=== PATIENT | female | born 1945 | race Caucasian/White ===

== ENCOUNTER → 2020-02-05 10:45 | Outpatient (BNVA) | payer MEDICARE, SELFPAY | PROVIDERS: Family Provider Family Medicine; PCP Family Medicine; Visit Provider Specialist | DX: G20 Parkinson's disease (principal) | CPT/HCPCS: 99214 ==

== ENCOUNTER 2020-07-01 06:00 | Outpatient (RCR) | payer MEDICARE, SELFPAY | END 2020-07-31 23:59 | disposition home or self-care (01) | LOC: SPT 06:00 | PROVIDERS: Family Provider Family Medicine; PCP Family Medicine; Referring Provider Family Medicine; Visit Provider Family Medicine | DX: R26.81 Unsteadiness on feet (principal) | CPT/HCPCS: 97110; 97162; 97530 ==

== ENCOUNTER 2020-08-01 06:00 | Outpatient (RCR) | payer MEDICARE, SELFPAY | END 2020-08-30 23:59 | disposition home or self-care (01) | LOC: SPT 06:00 | PROVIDERS: PCP Family Medicine; Referring Provider Family Medicine; Visit Provider Family Medicine | DX: R26.81 Unsteadiness on feet (principal) | CPT/HCPCS: 97530 ==

== ENCOUNTER → 2020-08-26 10:58 | Outpatient (BNVA) | payer MEDICARE, SELFPAY | PROVIDERS: PCP Family Medicine; Visit Provider Specialist | DX: G31.83 Neurocognitive disorder with Lewy bodies (principal); F02.80 Dementia in other diseases classified elsewhere, unspecified severity, without behavioral disturbance, psychotic disturbance, mood disturbance, and anxiety | CPT/HCPCS: 99214 ==

== ENCOUNTER → 2021-02-26 09:55 | Outpatient (BNVA) | payer MEDICARE, SELFPAY | PROVIDERS: PCP Family Medicine; Visit Provider Specialist | DX: G20 Parkinson's disease (principal); F02.80 Dementia in other diseases classified elsewhere, unspecified severity, without behavioral disturbance, psychotic disturbance, mood disturbance, and anxiety | CPT/HCPCS: 99213; 99214 ==

== ENCOUNTER 2021-06-21 12:56 | Inpatient (IN) | payer MEDICARE, SELFPAY ==
[2021-06-21 13:03] VITALS: BP 132/86; PULSE 95; RESP 18; TEMP 36.7; O2SAT 97; BMI 27.1
--- NOTE | 2021-06-21 13:41 | XRR_ITS ---
PROCEDURE INFORMATION: Exam: XR Left Shoulder Exam date and time: 06/21/2021 1:41 PM Age: 75 years old Clinical indication: Pain; Shoulder; Left; Additional info: Fall TECHNIQUE: Imaging protocol: XR Left shoulder. Views: 1 view. COMPARISON: CR Chest 1 [place] [id number] 12/27/2017 1:25 PM FINDINGS: Bones/joints: Single AP view of the left shoulder. No evidence of fracture or dislocation. Soft tissues: Normal. XR/XR shoulder LT 1V [id number] IMPRESSION: No acute findings.
--- NOTE | 2021-06-21 13:41 | XRR_ITS ---
PROCEDURE INFORMATION: Exam: XR Left Hip Exam date and time: 06/21/2021 1:41 PM Age: 75 years old Clinical indication: Injury or trauma; Fall; Blunt trauma (contusions or hematomas); Left; Hip TECHNIQUE: Imaging protocol: XR Left hip. Views: 2 or 3 views hip with pelvis when performed. COMPARISON: 1. CT abdomen pelvis w con* [id number] 05/16/2015 11:29 AM 2. CR (LOW EXM, ) 06/21/2021 2:05 PM FINDINGS: Bones/joints: Fracture through the left femoral neck, with mild cephalad migration of the shaft relative to the head. Soft tissues: Unremarkable. XR/XR hip LT 2-3V wo/w pel* [id number] IMPRESSION: Left femoral neck fracture.
--- NOTE | 2021-06-21 13:42 | XRR_ITS ---
PROCEDURE INFORMATION: Exam: XR Left Elbow Exam date and time: 06/21/2021 1:42 PM Age: 75 years old Clinical indication: Pain; Elbow; Left; Additional info: Fall TECHNIQUE: Imaging protocol: XR Left elbow. Views: 1 or 2 views. COMPARISON: CR (CHEST, ) 06/21/2021 1:56 PM FINDINGS: Bones/joints: No evidence of fracture or dislocation. Soft tissues: Soft tissue swelling of the upper arm laterally and posteriorly. XR/XR elbow LT 2V [id number] IMPRESSION: No evidence of fracture or dislocation.
--- NOTE | 2021-06-21 13:49 | ED_ITS ---
HPI - Fall General: Chief Complaint: Fall Stated Complaint: Left hip, left arm pain Time Seen by Provider: 06/21/21 13:25 Source: patient and family (Daughter and ) Mode of arrival: ambulatory Limitations: no limitations History of Present Illness: History isPatient was transported to the emergency department by family. By the daughter as well as a spouse of the patient. She has a history of p arkinsonism and does have some gait issues. Cording to the they were ambulating and ground-level last evening and she stumbled and fell and he also fell with her. She did not suffer syncope prior to her fall or loss of consciousness associated with her fall. The daughter went over to see them today and noted that the mother complained of pain in her left elbow as well as her left thigh region. The patient apparently has complained of pain with movement of the left leg and hip. MD complaint: fall Fall from: standing Fall witnessed: yes, by family Place fall occurred: home Loss of consciousness: None Context: tripped/slipped and history of frequent falls Location of injury - extremities: Left: elbow, forearm and thigh Severity: moderate Associated symptoms-after fall: Reports difficulty walking (Chronic); Denies abdominal pain, chest pain, headache(s) or neck pain Review of Systems Const: Denies: fever(s) or chills Eyes: Denies: change in vision or blurry vision Card: Denies: chest pain, palpitations or syncope Resp: Denies: dyspnea GI: Denies: abdominal pain, nausea or diarrhea : Denies: flank pain, difficulty voiding or dysuria Musc: Denies: neck pain Neuro: Reports: difficulty walking (Chronic) and frequent falls; Denies: headache(s) or seizure-like activity Giancarlo/Lymph: Reports: easy bruising [facility] ED PFSH: Medical History Lewy body Parkinson disease Family History Other CAD (coronary artery disease) Cancer Dementia Diabetes Parkinson disease Social History Smoking and tobacco status: never smoked Physical Exam Narrative: EXAM NARRATIVE: She is alert makes good eye contact. Her speech is somewhat inhibited due to low volume some stuttering. Const: COMMON NORMALS: no acute distress and alert GENERAL APPEARANCE: cooperative, comfortable and well kempt ORIENTATION/CONSCIOUSNESS: Yes oriented to person HENMT: COMMON NORMALS: normocephalic, atraumatic and Normal external nose present HEAD & SCALP: normocephalic and atraumatic; no contusion FACE & SINUS: normal facial exam and face symmetric NOSE: Normal external nose present MOUTH: Normal oral and palatal mucosa present Eye: COMMON NORMALS: Equal, round and reactive pupils present, EOMs intact bilaterally and conjunctivae normal CONJUNCTIVA: Yes conjunctivae normal PUPIL: Yes Equal, round and reactive pupils present Neck/C-Spine: COMMON NORMALS: full ROM (She has no midline tenderness. She is able to range her head and neck to t) and No carotid bruits CAROTIDS: Yes normal carotid upstroke Lymph: LYMPHATIC: no lymphadenopathy noted Chest: COMMONS NORMALS: normal inspection of the chest and normal palpation of entire chest wall Resp: COMMON NORMALS: normal respiratory effort and No retractions Cardio: COMMON NORMALS: regular rate, regular rhythm and No murmurs present (Cardio) RATE: regular rate RHYTHM: regular rhythm GI: COMMON NORMALS: Normal to inspection, nondistended, normoactive bowel sounds present, Soft to palpation and non-tender PALPATION: Yes Soft to palpation : COMMON NORMALS: Yes no CVA tenderness BLADDER/KIDNEY EXAM: Yes no CVA tenderness Back/Pelvis: COMMON NORMALS: no CVA tenderness, thoracic and lumbar spine normal to inspection, no thoracic nor lumbar tenderness and thoraco-lumbar ROM normal PELVIS: Yes no pain with anterior-posterior compression and Yes no pain with lateral compression Extremity: COMMON NORMALS: capillary refill normal NARRATIVE EXTREMITY EXAM: Her right upper and right lower extremities were examined and had normal range of motion with any tenderness deformity etc. Her left upper extremity shoulder range of motion was normal. Her elbow and wrist were normal range of motion w ithout any deformity. Her left lower extremity remarkable for decreased range of motion at the hip with tenderness down the lateral femur. Knee and ankle range of motion were normal without deformity. GENERAL: Yes normal exam except as noted LEFT UPPER EXTREMITY: Yes elbow joint (Ecchymosis mild swelling) LEFT LOWER EXTREMITY: Yes upper leg (Tenderness lateral mid thigh. Tenderness with attempt to range upper leg.) Neuro: SENSORIUM/ORIENTATION: Yes alert and Yes oriented to person MOTOR EXAM: no tremor noted Psych: COMMON NORMALS: mental status grossly normal APPEARANCE: Yes well kempt Skin: COMMON NORMALS: no rashes or lesions noted GENERAL SKIN EXAM: no rashes or lesions noted and ecchymosis (Left elbow left wrist.) Course ED course: I informed the patient and family of her hip fracture. No evidence at this time of other injuries. She will need orthopedic consultation admission for operative fixation. We will go ahead and begin preoperative screening laboratories etc. and consult the appropriate services. Patient and family voiced understanding of our discussion. Consultations: Consultation #1: I spoke with Dr. Camejo orthopedist motor vehicle salesperson. She will act as a application consultant and requests that we admit her to the hospitalist service. Time: 14:47 Consultation #2: I spoke with Dr. Amaro attending hospitalist who agreed except the patient. Time: 14:47 Vital Signs: Vital signs: Vital Signs Temperature 98.0 F 06/21/21 13:03 Pulse Rate 95 06/21/21 13:03 Respiratory Rate 18 06/21/21 13:03 Blood Pressure 132/86 06/21/21 13:03 Pulse Oximetry 97 06/21/21 13:03 MDM - Fall Medical Decision Making Patient has a closed fracture of the left hip that will require operative repair. Patient does not have any evidence of other injury at this time. We will plan on admission. Patient and family were informed. Lab Data Radiology Impressions Hip/Pelvis X-Ray 06/21/21 13:41 IMPRESSION: Left femoral neck fracture. Shoulder X-Ray 06/21/21 13:41 IMPRESSION: No acute findings. Elbow X-Ray 06/21/21 13:42 IMPRESSION: No evidence of fracture or dislocation. Femur X-Ray 06/21/21 13:52 IMPRESSION: Osteopenia. No evidence of fracture. Discharge Plan Discharge Patient Disposition: Admitted As Inpatient Clinical Impression: Closed fracture of left hip, Parkinson disease Condition: Stable Prescriptions: No Action (DME) Arsen Lift See Rx Instructions .Route .MEDSUPPLY Qty: 1 0RF Rx Instructions: As directed (DME) Depends Pull Ups See Rx Instructions .Route .MEDSUPPLY Qty: 1 0RF Rx Instructions: As directed (DME) Hospital bed See Rx Instructions .Route .MEDSUPPLY Qty: 1 0RF Rx Instructions: As directed donepezil 10 mg tablet 10 mg PO BEDTIME 0RF paroxetine HCl 20 mg tablet 20 mg PO BEDTIME 0RF meloxicam 15 mg Tablet 15 mg PO BEDTIME 0RF aspirin 81 mg Tablet,Chewable 81 mg PO BEDTIME 0RF clonazepam 0.5 mg tablet 0.5 mg PO BEDTIME 0RF carbidopa-levodopa 25-100 mg tablet,disintegrating 1 tab PO BEDTIME 0RF Referrals: Emile Castillo MD [Primary Care Provider] - Coding Level of Care Code ED [employer] for Chg Fwd Exam Comprehensive
--- NOTE | 2021-06-21 13:52 | XRR_ITS ---
PROCEDURE INFORMATION: Exam: XR Left Femur Exam date and time: 06/21/2021 1:52 PM Age: 75 years old Clinical indication: Pain; Lower leg; Left; Additional info: Fall, May substitute for knee TECHNIQUE: Imaging protocol: XR Left femur. Views: 2 views. COMPARISON: CR (PELVIS, ) 06/21/2021 2:02 PM FINDINGS: Bones/joints: Osteopenia limiting evaluation. No evidence of fracture. Note that the proximal femur is shielded on the lateral view. Soft tissues: Unremarkable. XR/XR femur LT min 2V* [id number] IMPRESSION: Osteopenia. No evidence of fracture.
--- NOTE | 2021-06-21 14:53 | XRR_ITS ---
PROCEDURE INFORMATION: Exam: XR Chest Exam date and time: 06/21/2021 2:53 PM Age: 75 years old Clinical indication: Pain; Other: Hip fracture TECHNIQUE: Imaging protocol: XR of the chest. Views: 1 view. COMPARISON: CR Chest 1 [place] [id number] 12/27/2017 1:25 PM FINDINGS: Lungs: Unremarkable. No consolidation. Pleural spaces: Unremarkable. No pleural effusion. No pneumothorax. Heart/Mediastinum: Unremarkable. No cardiomegaly. Bones/joints: Unremarkable. XR/XR chest 1V [id number] IMPRESSION: No acute findings.
--- NOTE | 2021-06-21 14:53 | ECG_ITS ---
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 Measurements Intervals [place] Rate: 92 P: 66 [place]: 142 QRS: 78 QRSD: 90 T: 64 QT: 356 QTc: 441 Interpretive Statements SINUS RHYTHM MINIMAL ST DEPRESSION [0.025+ mV ST DEPRESSION] Compared to ECG 12/27/2017 12:51:28 ST (T wave) deviation now present Sinus tachycardia no longer present Atrial abnormality no longer present Electronically Signed On 06-23-2021 12:15:54 MEDICAL STAFF SERVICES COORDINATOR by Aramis Ritter M.D. [id number]
--- NOTE | 2021-06-21 15:27 | W.ED.FALL ---
HPI - Fall General: Chief Complaint: Fall Stated Complaint: Left hip, left arm pain Time Seen by Provider: 06/21/21 13:25 Source: patient and family (Daughter and ) Mode of arrival: ambulatory History of Present Illness: Place fall occurred: home Context: tripped/slipped and history of frequent falls PFS ED PFSH: Medical History Lewy body Parkinson disease Family History Other CAD (coronary artery disease) Cancer Dementia Diabetes Parkinson disease Social History Smoking and tobacco status: never smoked Course Vital Signs: Vital signs: Vital Signs Temperature 98.0 F 06/21/21 13:03 Pulse Rate 95 06/21/21 13:03 Respiratory Rate 18 06/21/21 13:03 Blood Pressure 132/86 06/21/21 13:03 Pulse Oximetry 97 06/21/21 13:03 MDM - Fall Lab Data Radiology Impressions Hip/Pelvis X-Ray 06/21/21 13:41 IMPRESSION: Left femoral neck fracture. Shoulder X-Ray 06/21/21 13:41 IMPRESSION: No acute findings. Elbow X-Ray 06/21/21 13:42 IMPRESSION: No evidence of fracture or dislocation. Femur X-Ray 06/21/21 13:52 IMPRESSION: Osteopenia. No evidence of fracture. 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
--- NOTE | 2021-06-21 15:29 | P.CONIM_ITS ---
Providers/Reason For Consult Consulting Physician/Specialty*: Floridalma Cardoso MD Reason for Consult*: Left subcapital hip fracture Requesting Physician: Dr. Ricardo Berg Attending Physician: Donnie Amaro MD Primary Care Provider: Emile Castillo MD History of Present Illness History of Present Illness Maine Jimenez is a 75 year old female who was in her usual state of health when she had a mechanical fall at home. This was a fall from ground-level. The patient reportedly stumbled, and she and her ended up falling together to the floor. She has medical issues consistent with parkinsonism as well as Lewy body dementia. The patient and her denied that she had any other reason for her fall. On admission to the emergency department, she had left lower extremity pain and was unable to weight-bear. After evaluation, the patient was found to have a subcapital hip fracture. She was admitted for definitive care. Review of Systems Const: Denies: fever(s) or chills Eyes: Denies: change in vision or blurry vision Card: Denies: chest pain, palpitations or syncope Resp: Denies: dyspnea GI: Denies: abdominal pain, nausea or diarrhea : Denies: flank pain, difficulty voiding or dysuria Musc: Denies: neck pain Neuro: Reports: difficulty walking (Chronic), frequent falls and other (Dementia); Denies: headache(s) or seizure-like activity Giancarlo/Lymph: Reports: easy bruising Medications/Allergies Home Medications Medication Instructions Recorded Confirmed Last Taken Type donepezil 10 mg tablet 10 mg PO BEDTIME 02/05/20 06/21/21 06/20/21 History paroxetine HCl 20 mg tablet 20 mg PO BEDTIME 02/05/20 06/21/21 06/20/21 History Depends Pull Ups #1 ea 08/26/20 06/21/21 Unknown Rx Hospital bed #1 ea 08/26/20 06/21/21 Unknown Rx Arsen Lift #1 ea 08/26/20 06/21/21 Unknown Rx aspirin 81 mg chewable tablet 81 mg PO BEDTIME 06/21/21 06/21/21 06/20/21 History carbidopa 25 mg-levodopa 100 mg 1 tab PO BEDTIME 06/21/21 06/21/21 06/20/21 History disintegrating tablet clonazepam 0.5 mg tablet 0.5 mg PO BEDTIME 06/21/21 06/21/21 06/20/21 History meloxicam 15 mg tablet 15 mg PO BEDTIME 06/21/21 06/21/21 06/20/21 History Allergies Allergy/AdvReac Type Severity Reaction Status Date / Time No Known Allergies Allergy Unverified 06/21/21 14:17 PFSH Acute PFSH: Medical History Lewy body Parkinson disease Family History Other CAD (coronary artery disease) Cancer Dementia Diabetes Parkinson disease Social History Smoking and tobacco status: never smoked Dietary Habits: Current diet type/program: regular Vitals/I&O/Wt Last Vital Signs Temp 98.0 F 06/21/21 13:03 Pulse 95 06/21/21 13:03 Resp 18 06/21/21 13:03 BP 132/86 06/21/21 13:03 Pulse Ox 97 06/21/21 13:03 Weight last 48 hrs Weight 163 lb Physical Exam Const: COMMON NORMALS: no acute distress, average body habitus and alert GENERAL APPEARANCE: cooperative and comfortable ORIENTATION/CONSCIOUSNESS: Yes awake HENMT: COMMON NORMALS: normocephalic and atraumatic HEAD & SCALP: normocephalic and atraumatic Eye: GENERAL EYE: appearance normal, both eyes and all related structures Chest: COMMONS NORMALS: normal inspection of the chest Resp: COMMON NORMALS: normal respiratory effort EFFORT & INSPECTION: Yes symmetric chest movement Extremity: LEFT UPPER EXTREMITY: Yes elbow joint (Significant ecchymosis about the elbow secondary to fall) LEFT LOWER EXTREMITY: Yes hip joint (Tender to any range of motion) Left hip: Yes neurovascular exam (Able to move toes and foot) Neuro: SENSORIUM/ORIENTATION: Yes alert and Yes other (Dementia) Psych: APPEARANCE: Yes grossly normal ATTITUDE: Yes calm ATTENTION/CONCENTRATION: Yes attention grossly intact Skin: COMMON NORMALS: no rashes or lesions noted GENERAL SKIN EXAM: no rashes or lesions noted Data : 06/22/21 03:37 06/22/21 03:37 Xray Ortho: I personally reviewed and interpreted this imaging study as follows: My impression: Imaging including an AP pelvis as well as a lateral of the patient's left hip is obtained. This is personally reviewed and interpreted by me. Imaging studies demonstrate a displaced subcapital hip fracture with superior migration of the distal the fragment. The femoral head is located. The remaining orthopedic imaging studies of the shoulder elbowAnd femur are without evidence of fracture. A&P Assessment and plan (1) Subcapital fracture of left hip: The 75-year-old woman was admitted through the emergency department with a diagnosis of left capital hip fracture. She has comorbidities including Parkinson's disease, and she was admitted to the medical service. I have personally reviewed the imaging studies, and there is a displaced subcapital hip fracture. There is superior migration of the femoral shaft on the femoral head which is not displaced from the acetabulum. Plans are made for a Left hip hemiarthroplasty for 8AM tomorrow. 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
[2021-06-21 15:43] LABS: Basophils % 0.3 %; Eosinophils # 0.1 10^3/uL (0.0-0.8); Eosinophils % 0.7 %; Hematocrit 40.8 % (37.0-47.0); Hemoglobin 13.5 g/dL (11.5-15.3); Lymphocytes # 0.9 10^3/uL (0.8-4.8); Lymphocytes % 9.9 %; Mean Corpuscular HGB Conc 33.1 g/dL (30.0-36.0); Mean Corpuscular Hemoglobin 28.4 pg (28.0-34.0); Mean Corpuscular Volume 85.7 fl (81-99); Mean Platelet Volume 9.5 fL (7.4-10.4); Monocytes # 0.7 10^3/uL (0.2-0.9); Neutrophils # 7.26 10^3/uL (1.8-7.7); Neutrophils % 80.7 %; Nucleated Red Blood Cells % 0 %; Platelet Count 176 10^3/cmm (130-400); Red Blood Count 4.76 10^6/uL (4.1-5.3); Red Cell Distribution Width 12.7 % (12.1-15.1)
--- NOTE | 2021-06-21 15:56 | P.HP_ITS ---
Providers/Chief Complaint Admitting Physician: Donnie Amaro MD Primary Care Provider: Emile Castillo MD Chief Complaint: Left hip, left arm pain History of Present Illness Maine Jimenez is a 75 year old female with past medical history of parkinsonism, LBD , was brought in with chief complaint of lt lower extremity pain, and difficulty to bear weight on it, after having mechanical fall at home she was ambulating at the ground-level and she stumbled and then experienced a fall, she denies any loss of consciousness, denies any lightheadedness, chest pain , palpitation, sob, prior to the fall. Upon arrival in the ER she was worked up for above-mentioned complaint. Pertinent imaging studies: XR hip LT: Left femoral neck fracture. XR shoulder LT: No acute findings. XR elbow LT:No acute findings XR femur LT: Osteopenia. No evidence of fracture. XR chest: No acute findings EKG: Sinus rhythm. Pertinent labs: WBC 9 H&H 13.5/40.8 , PLT : 176 , serum sodium 139 serum potassium 3.8, BUN and serum creatinine 15/ 0.6 , Review of Systems General: Reports: 10 or more systems reviewed and unremarkable except in HPI and below Const: Denies: fever(s), chills, body aches, change in appetite or diaphoresis Card: Denies: palpitations, edema, swelling of feet/ankles, dyspnea on exertion, orthopnea or leg pain with exertion Resp: Denies: dyspnea, productive cough, wheezing or pain on inspiration GI: Denies: abdominal pain, nausea, vomiting, diarrhea or constipation : Denies: flank pain Musc: Denies: back pain Neuro: Reports: confusion; Denies: headache(s) Medications/Allergies Home Medications Medication Instructions Recorded Confirmed Last Taken Type donepezil 10 mg tablet 10 mg PO BEDTIME 02/05/20 06/21/21 06/20/21 History paroxetine HCl 20 mg tablet 20 mg PO BEDTIME 02/05/20 06/21/21 06/20/21 History Depends Pull Ups #1 ea 08/26/20 06/21/21 Unknown Rx Hospital bed #1 ea 08/26/20 06/21/21 Unknown Rx Arsen Lift #1 ea 08/26/20 06/21/21 Unknown Rx aspirin 81 mg chewable tablet 81 mg PO BEDTIME 02/06/21/21 06/20/21 History carbidopa 25 mg-levodopa 100 mg 1 tab PO BEDTIME 06/21/21 06/21/21 06/20/21 History disintegrating tablet clonazepam 0.5 mg tablet 0.5 mg PO BEDTIME 06/21/21 06/21/21 06/20/21 History meloxicam 15 mg tablet 15 mg PO BEDTIME 06/21/21 06/21/21 06/20/21 History Allergies Allergy/AdvReac Type Severity Reaction Status Date / Time No Known Allergies Allergy Unverified 06/21/21 14:17 PFSH Acute PFSH: Medical History Lewy body Parkinson disease Family History Other CAD (coronary artery disease) Cancer Dementia Diabetes Parkinson disease Social History Smoking and tobacco status: never smoked Vitals/I&O/Wt Last Vital Signs Temp 98.0 F 06/21/21 13:03 Pulse 95 06/21/21 13:03 Resp 18 06/21/21 13:03 BP 132/86 06/21/21 13:03 Pulse Ox 97 06/21/21 13:03 Weight last 48 hrs Weight 73.936 kg Physical Exam Const: COMMON NORMALS: patient oriented x3 HENMT: COMMON NORMALS: normocephalic and atraumatic HEAD & SCALP: normocephalic and atraumatic Eye: COMMON NORMALS: no scleral icterus GENERAL EYE: appearance normal, both eyes and all related structures Chest: CHEST: Yes Symmetrical chest wall rise Resp: COMMON NORMALS: normal respiratory effort, No retractions, No use of accessory muscles and clear to auscultation bilaterally EFFORT & INSPECTION: Yes symmetric chest movement AUSCULTATION: clear to auscultation bilaterally Cardio: COMMON NORMALS: regular rate, regular rhythm, S1 normal heart sound present, S2 normal heart sound present, No gallops present (Cardio), No murmurs present (Cardio), No rub (Cardio) and Peripheral pulses 2+ throughout RATE: regular rate RHYTHM: regular rhythm HEART SOUNDS: S1 normal heart sound present and S2 normal heart sound present PERIPHERAL PULSES: Peripheral pulses 2+ throughout GI: COMMON NORMALS: Normal to inspection, nondistended, normoactive bowel s ounds present, Soft to palpation, non-tender, No hepatosplenomegaly present and no masses AUSCULTATION: Yes normoactive bowel sounds PALPATION: Yes Soft to palpation and Yes No hepatosplenomegaly present RECTAL EXAM: deferred Extremity: COMMON NORMALS: no clubbing, cyanosis or edema and no pedal edema Neuro: COMMON NORMALS: patient oriented x3 Data : 06/21/21 15:34 06/21/21 15:34 A&P Assessment and plan (1) Subcapital fracture of left hip: Status: Acute (2) Closed fracture of left hip: Status: Acute (3) Parkinson disease: Status: Acute (4) Lewy body dementia: Status: Acute Plan Assessment: Left femoral neck fracture: Parkinsonism Lewy body dementia Plan : Orthopedic surgery has been consulted in the ER, for intervention. Pain control N.p.o. after midnight Continue Sinemet Continue Aricept Continue aspirin 81 mg p.o. 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
--- NOTE | 2021-06-21 16:02 | ANES.PREANE2 ---
Pre-Anesthetic Assessment Height/Weight: Height 1.65 m Weight 73.936 kg Temp Pulse Resp BP Pulse Ox 98.0 F 95 18 132/86 97 06/21/21 13:03 06/21/21 13:03 06/21/21 13:03 06/21/21 13:03 06/21/21 13:03 Preop Diagnosis: Left subcapital hip fract Operation Date: 06/22/21 08:45 Proposed Procedures p Hemiarthroplasty Hip Bipolar(Left) - Floridalma Cardoso MD Familial anesthetic complications: Hx from and daughter Was Beta Carolyn taken within 24 hours: N/A Was Clonidine taken within 24 hours: N/A Social No alcohol and No tobacco Exam clear to auscultation bilaterally and regular rate & rhythm AMS today. Does follow some commands Airway Submandibular: within normal limits Cervical ROM: Other (Did not cooperate with exam to assess) Mallampati: Class II Dentition: partials History/ROS No significant history except as noted Pulmonary None reported CV/HEM None reported None reported Hepatic None reported GI None reported Metabolic None reported Musc/skel Acute fx left hip Neuropsych Lewy Body Dementia w/ periods of halluciniation Parkinson on carbidopa-levodopa Anesthetic Plan ASA status: 3 (75 year old female with acute hip fracture Parkison and lewy body dementia with progressive worsening of memory and mental state) Anesthesia: Anesthesia Evaluation, General and Regional (specify below) (spinal) Other: We discussed risk and benefits of general vs spinal anesthesia including DVT risk, infection, paralysis/catastrophic nerve injury, back bruising/pain, PDPH, conversion to general in case of spinal, PONV, sore throat (sometimes severe), corneal abrasion, positioning and peripheral nerve injuries, life threatening allergic reaction, post operative ICU admission requiring prolonged intubation, stroke, heart attack, , and rare incidences of recall. and daughterb both agree and both consent to either general or spinal. Plan spinal anesthesia. Risk of > 500 ml blood loss (7ml/kg in children): No Medications/Allergies Home Medications Medication Instructions Recorded Confirmed Last Taken Type donepezil 10 mg tablet 10 mg PO BEDTIME 02/05/20 06/21/21 06/20/21 History paroxetine HCl 20 mg tablet 20 mg PO BEDTIME 02/05/20 06/21/21 06/20/21 History Depends Pull Ups #1 ea 08/26/20 06/21/21 Unknown Rx Hospital bed #1 ea 08/26/20 06/21/21 Unknown Rx Arsen Lift #1 ea 08/26/20 06/21/21 Unknown Rx aspirin 81 mg chewable tablet 81 mg PO BEDTIME 06/21/21 06/21/21 06/20/21 History carbidopa 25 mg-levodopa 100 mg 1 tab PO BEDTIME 06/21/21 06/21/21 06/20/21 History disintegrating tablet clonazepam 0.5 mg tablet 0.5 mg PO BEDTIME 06/21/21 06/21/21 06/20/21 History meloxicam 15 mg tablet 15 mg PO BEDTIME 06/21/21 06/21/21 06/20/21 History Allergies Allergy/AdvReac Type Severity Reaction Status Date / Time No Known Allergies Allergy Unverified 06/21/21 14:17 [facility] Anesthesia Medical History Lewy body Parkinson disease Family History Other CAD (coronary artery disease) Cancer Dementia Diabetes Parkinson disease Social History Smoking and tobacco status: never smoked Data Anesthesia : 06/21/21 15:34 06/21/21 15:34 Short CBC 06/21/21 Range/Units 15:34 WBC 9.0 (4.0-10.0) 10^3/uL Hgb 13.5 (11.5-15.3) g/dL Hct 40.8 (37.0-47.0) % MCV 85.7 (81-99) fl Plt Count 176 (130-400) 10^3/cmm Neut % (Auto) 80.7 % Neut # (Auto) 7.26 (1.8-7.7) 10^3/uL Cardiac Studies: No Data to Display
[2021-06-21 16:06] VITALS: BP 151/76; PULSE 87; RESP 13; O2SAT 96
[2021-06-21 16:13] LABS: Alanine Aminotransferase 16 U/L (0-33); Albumin Level 4.3 g/dL (3.5-5.2); Alkaline Phosphatase 87 IU/L (35-105); Anion Gap 14.8 (5-19); Aspartate Amino Transferase 18 U/L (0-32); Blood Urea Nitrogen 15 mg/dL (8-23); Calcium 9.5 mg/dL (8.5-10.5); Carbon Dioxide 26 mmol/L (22-29); Chloride 102 mmol/L (98-107); Globulin 2.8 g/dL (1.3-4.6); Glucose 102 mg/dL (65-115); Osmolality Calculated 289 mOsm/kg (285-295); Potassium 3.8 mmol/L (3.5-5.1); Sodium 139 mmol/L (136-145); Total Bilirubin 1.2 mg/dL (0.15-1.2); Total Protein 7.1 g/dL (6.6-8.7)
[2021-06-21] MEDS: enoxaparin 40 mg/0.4 mL Syringe SUBCUT (16:24)
[2021-06-21 17:44] VITALS: BMI 27.1
[2021-06-21 17:51] LABS: Adenovirus Not Detected (NOT DETECT); Chlamydia Pneumoniae Not Detected (NOT DETECT); Coronavirus 229E,HKU1,NL63,OC4 Not Detected (NOT DETECT); Human Metapneumovirus Not Detected (NOT DETECT); Human Rhinovirus/Enterovirus Not Detected (NOT DETECT); Influenza A Not Detected (NOT DETECT); Influenza A H1 Not Detected (NOT DETECT); Influenza A H1-2009 Not Detected (NOT DETECT); Influenza A H3 Not Detected (NOT DETECT); Influenza B Not Detected (NOT DETECT); Mycoplasma Pneumoniae Not Detected (NOT DETECT); Parainfluenza Virus Type 1 Not Detected (NOT DETECT); Parainfluenza Virus Type 2 Not Detected (NOT DETECT); Parainfluenza Virus Type 3 Not Detected (NOT DETECT); Parainfluenza Virus Type 4 Not Detected (NOT DETECT); Respiratory Syncytial Virus A Not Detected (NOT DETECT); Respiratory Syncytial Virus B Not Detected (NOT DETECT); SARS-COV-2 Not Detected (NOT DETECT)
[2021-06-21 17:52] VITALS: BP 151/76; PULSE 87; RESP 13; O2SAT 96
[2021-06-21 18:10] LABS: Add Urine Microscopic? YES; Bilirubin Urine Neg (Negative); Blood Urine Neg (Negative); Glucose Urine UA Norm (Normal); Ketones Urine Negative (Negative); Leukocyte Esterase Urine Negative (Negative); Nitrate Urine Positive (Negative); Protein Urine Neg (Negative); Specific Gravity, Urine 1.015 (1.005-1.030); Urine Appearance Hazy (CLEAR); Urine Color Yellow (Yellow); Urobilinogen Urine Norm (Negative); pH Urine 5 (5-7)
[2021-06-21 18:12] LABS: Add Urine Culture? Yes; Bacteria Urine 4+ /hpf; Mucus Urine 1+ /hpf; Squamous Epithelial Cell Urine RARE /hpf (0-5)
[2021-06-21 20:00] VITALS: BP 127/83; PULSE 90; RESP 16; TEMP 38.1; O2SAT 97
[2021-06-21] MEDS: CLONazepam 0.5 mg Tablet PO (20:12)
[2021-06-21] MEDS: donepezil 5 MG Tablet 10 MG PO (20:12)
[2021-06-21] MEDS: aspirin 81 mg Chew Tablet PO (20:12)
[2021-06-21] MEDS: carbidopa-levodopa 25-100mg Tablet 1 EACH PO (20:12)
[2021-06-21] MEDS: PARoxetine 20 mg Tablet PO (20:13)
[2021-06-22] VITALS (17 sets, daily range): BP systolic 90–143; BP diastolic 55–78; PULSE 64–89; RESP 11–18; TEMP 36.1–37.4; O2SAT 93–97
[2021-06-22 04:14] LABS: Basophils % 0.4 %; Eosinophils # 0.1 10^3/uL (0.0-0.8); Eosinophils % 1.6 %; Hematocrit 35.1 % (37.0-47.0); Hemoglobin 11.6 g/dL (11.5-15.3); Lymphocytes # 0.9 10^3/uL (0.8-4.8); Lymphocytes % 11.9 %; Mean Corpuscular Hemoglobin 28.6 pg (28.0-34.0); Mean Corpuscular Volume 86.7 fl (81-99); Mean Platelet Volume 9.9 fL (7.4-10.4); Monocytes # 0.8 10^3/uL (0.2-0.9); Monocytes % 9.7 %; Neutrophils # 6.01 10^3/uL (1.8-7.7); Nucleated Red Blood Cells % 0 %; Platelet Count 164 10^3/cmm (130-400); Red Blood Count 4.05 10^6/uL (4.1-5.3); White Blood Count 7.9 10^3/uL (4.0-10.0)
[2021-06-22 04:34] LABS: Anion Gap 12.5 (5-19); Blood Urea Nitrogen 17 mg/dL (8-23); Calcium 8.8 mg/dL (8.5-10.5); Carbon Dioxide 26 mmol/L (22-29); Chloride 107 mmol/L (98-107); Glucose 111 mg/dL (65-115); Osmolality Calculated 296 mOsm/kg (285-295); Potassium 3.5 mmol/L (3.5-5.1); Sodium 142 mmol/L (136-145)
[2021-06-22] MEDS: acetaminophen 325 mg Tablet 650 MG PO (06:47)
--- NOTE | 2021-06-22 07:23 | PC.NURSE ---
Patient to surgery at this time.
[2021-06-22] MEDS: CELEcoxib 200 mg Capsule 400 MG PO (07:36)
[2021-06-22] MEDS: sodium chloride 0.9% 1,000 ML 30 ML IV (07:37)
[2021-06-22] MEDS: acetaminophen 1,000 MG/100 ML PIGGYBACK 400 MG IV ×2 (07:44→16:27)
[2021-06-22] MEDS: vancomycin 1,000 MG SDV 1000 MG XX (08:55)
[2021-06-22] MEDS: ceFAZolin 1,000 mg SDV 1000 MG IRRIGATION (08:56)
--- NOTE | 2021-06-22 09:11 | PC.NURSE ---
Report received from Antonia CARLSON.
--- NOTE | 2021-06-22 09:54 | XRR_ITS ---
PROCEDURE INFORMATION: Exam: XR Pelvis Exam date and time: 06/22/2021 9:54 AM Age: 75 years old Clinical indication: Hip pain; Left hip; Prior surgery; Surgery date: Post-operative (0-2 days); Additional info: S/P left hip hemiarthroplasty TECHNIQUE: Imaging protocol: XR pelvis. Views: AP single view. COMPARISON: CR (PELVIS, ) 06/21/2021 2:02 PM FINDINGS: Bones/joints: Interval left proximal femoral bipolar hip prosthesis placement, in good position and alignment. Soft tissues: Lateral operative site mild soft tissue emphysema. XR/XR pelvis 1-2V* [id number] IMPRESSION: 1. Postoperative changes as above. 2. No acute bony or hardware abnormality identified.
--- NOTE | 2021-06-22 09:58 | PM.OP ---
Operative Report Date of procedure: June 22, 2021 Pre-op diagnosis: Left subcapital hip fracture Post-op diagnosis: Left subcapital hip fracture with adductor contracture Procedure done: Left Bipolar Hip Arthroplasty Adductor tenotomy left hip Implants: The [place] hip system with the following implants: The Accolade II 127 degree neck angle size 5 femoral stem with a V40 LFIT femoral head size 28 mm x +4 mm and a universal head component bipolar size 46 mm outer diameter by 28 mm inner diameter Specimens removed/disposition: Femoral head, disposed of Pathology: none sent Surgeon: Floridalma Cardoso Tutor Coordinator: [facility] operating room technicians Anesthesia: MAC (With spinal, ASA 3) Estimated blood loss (mL): 200 IV fluids (mL): 1,000 Urine output (mL): 100 Complications: None Findings: Displaced left subcapital hip fracture. Adductor contracture Condition: stable Disposition: PACU (Then return to floor for postoperative rehabilitation, medical management, and pain management.) Brief History: This is a 75-year-old woman who unfortunately has Parkinson's and Lewy body dementia. She lost her balance and fell in her home. She states that it was a mechanical fall, and both she and her fell onto the floor together. She presented to the emergency department with inability to weight-bear on the left lower extremity. X-rays demonstrated a subcapital left hip fracture. She was admitted for definitive care. Procedure: The patient was brought to the operating theater, and after undergoing adequate spinal anesthesia, with MAC, ASA 3, she was transferred to the operating room table. The patient was placed in the full lateral position and held in place with the pegboard. Patient's leftlower extremity was draped free and was subsequently prepped and further draped free. A surgical pause was performed prior to commencement of the surgical procedure. During the surgical pause, we confirmed the site and side of surgery as well as availability of equipment. Additionally, we confirmed preoperative surgical markings. X-rays are also reviewed during this time.? Preoperatively, the patient was given Ancef 2 g as well as 1 g of TXA. Following the surgical pause, an incision was made centering over the greater trochanter continuing proximally and distally as necessary to allow access to the hip joint. Dissection continued through skin and soft tissue using scalpel. Hemostasis was obtained using electrocautery. Tensor fascia shazia was identified and incised longitudinally. Sciatic nerve was identified and protected throughout the surgical procedure. A Charnley U retractor was placed with care being taken to protect the sciatic nerve during placement. The hip was internally rotated. Piriformis muscle was then identified, tagged, and subsequently incised from the posterior aspect of the hip joint. The remaining short external rotators were also incised. These were then elevated off the capsule and the capsule was entered in a T-type fashion. Each side of the capsule was then tagged. The proximal femur was brought into an appropriate position of the femoral neck osteotomy was accomplished. This was in appropriate position for placement of the prosthetic component. Femoral head was removed from the acetabulum utilizing a corkscrew. It was subsequently measured. The appropriate size trial was chosen. This was a size 46 mm, and this was based upon measurement of the removed femoral head.?46 mm outer diameter gave us the best stability.? Therefore, this was the chosen size for implantation.? The femoral activities director scouting was then placed and attention was directed to the proximal femur.? Initially, the proximal femur was addressed with a box chisel, and this was followed by a canal finder and subsequently broaches. The hip was broached to a size 5 which was noted to fit nicely and have good fit and fill. Therefore this was to be the chosen component. Trial reduction was then accomplished with a 46 mm by 28 mm universal bipolar head component, a +0 mm by 28 mm femoral head. The hip was not felt to be stable enough under this construct, particularly, with the patient's diagnosis of parkinsonism. Therefore, we increased to a +4 mm x 28 mm femoral head. With this, the above-noted stabilities were accomplished and leg lengths were felt to be restored. This was felt to be appropriate, and therefore, trial components were removed and the hip was irrigated. Acetabulum was evaluated for any loose bodies or other soft tissues requiring resection. We then prepared for implantation. The size no Accolade II 127 degree neck angle hip stem was then impacted into position.? On the back table, we assembled the 46 mm universal bipolar head component with a +4 mm offset by 28 mm femoral head.? Care was taken to ensure that this was appropriately assembled.? This was placed onto the trunnion of the femoral component. It was impacted into position and pulled upon to assure that there was no dissociation. Once again the hip was irrigated and suctioned dry and was reduced. We then irrigated the hip further with 20 mL of Betadine mixed into 500 mL of normal saline. This was allowed to remain in the wound for approximately 3 minutes. It was then suctioned dry and irrigated with normal saline. This was suctioned dry again and closure was accomplished with 0 Vicryl in the capsular tissues followed by reattachment of the piriformis with 0 Vicryl. Additionally, the tensor was closed with 0 Vicryl in an interrupted fashion. Subcutaneous tissues were closed with 2-0 Monocryl. Skin was closed with subcuticular 3-0. This was followed by Donna Santos. A sterile dressing was placed consisting of Opsite, and the patient was placed in an abduction pillow. The patient was returned the Recovery Room in satisfactory condition. There were no complications. The patient will be discharged to the floor for postoperative rehabilitation and pain management. Related Problem List Diagnoses (1) Subcapital fracture of left hip: (2) Parkinson disease: (3) Lewy body dementia:
--- NOTE | 2021-06-22 10:22 | ANE.PACU2 ---
Inpatient post-anesthesia follow up: Vital signs: Temperature 97.4 F Pulse Rate 83 Respiratory Rate 18 Blood Pressure 143/78 Pulse Oximetry 94 Oxygen Delivery Me thod Room Air Oxygen Flow Rate Fraction of Inspir ed Oxygen
--- NOTE | 2021-06-22 10:56 | PC.OT ---
SURGERY THIS DATE, WILL PLAN TO EVALUATE TOMORROW WHEN MORE APPROPRIATE TO DETERMINE ADL STATUS.
--- NOTE | 2021-06-22 11:04 | PC.NURSE ---
Patient returned to room at this time. Daughter and at bedside. Patient is awake but sleepy. Patient denies any pain at this time.
[2021-06-22] MEDS: chlorhexidine gluconate 0.12% Btl 473 mL 30 ML MUCOUS MEM ×3 (12:41→21:19)
[2021-06-22] MEDS: mupirocin oint 22 gm 1 APPLIC NASAL ×2 (12:45→21:20)
--- NOTE | 2021-06-22 12:55 | PM.PN ---
Subjective Subjective: No acute events overnight, patient was seen after the procedure,tolerated the intervention well was complaining of discomfort due to keenan catheter. Mild lt leg pain. Had one episode of choking event while trying to eat noodles. Medications: Medication Review Details: Generic Name Dose Route Start Last Admin Trade Name Tara PRN Reason Stop Dose Admin Aspirin 81 mg 06/21/21 21:00 06/21/21 20:12 Aspirin 81 Mg Ch ew Tablet PO 81 mg BEDTIME NAZARIO Administration Carbidopa/Levodopa 1 each 06/21/21 21:00 06/21/21 20:12 Carbidopa-Levodo pa 25-100mg Tablet PO 1 each BEDTIME NAZARIO Administration Chlorhexidine Gluc raegan 30 ml 06/22/21 10:50 06/22/21 12:41 Chlorhexidine Gl uconate 0.12% Btl 473 Ml MUCOUS MEM 30 ml QID NAZARIO Administration Clonazepam 0.5 mg 06/21/21 21:00 06/21/21 20:12 Clonazepam 0.5 M g Tablet PO 0.5 mg BEDTIME NAZARIO Administration Donepezil HCl 10 mg 06/21/21 21:00 06/21/21 20:12 Donepezil 5 Mg T ablet PO 10 mg BEDTIME NAZARIO Administration Enoxaparin Sodium 40 mg 06/21/21 16:00 06/21/21 16:24 Enoxaparin 40 Mg /0.4 Ml Syringe SUBCUT 40 mg Q24H NAAZRIO Administration Mupirocin 1 applic 06/22/21 10:50 06/22/21 12:45 Mupirocin Oint 2 2 Gm NASAL 06/27/21 10:49 1 applic BID NAZARIO Administration Paroxetine HCl 20 mg 06/21/21 21:00 06/21/21 20:13 Paroxetine 20 Mg Tablet PO 20 mg BEDTIME NAZARIO Administration Vitals/I&O/Wt Last Vital Signs Temp 97.3 F L 06/22/21 11:50 Pulse 65 06/22/21 11:50 Resp 18 06/22/21 11:50 BP 128/76 06/22/21 11:50 Pulse Ox 95 06/22/21 11:50 06/21/21 06/22/21 06/22/21 22:59 06:59 14:59 Intake Total 120 / 120 270 / 270 Output Total 200 / 200 400 / 400 Balance 120 / 120 -200 / -80 -130 / -130 Weight last 48 hrs Weight 73.936 kg Weight 73.936 kg Physical Exam Const: COMMON NORMALS: patient oriented x3 HENMT: COMMON NORMALS: normocephalic and atraumatic HEAD & SCALP: normocephalic and atraumatic Eye: COMMON NORMALS: no scleral icterus GENERAL EYE: appearance normal, both eyes and all related structures Chest: CHEST: Yes Symmetrical chest wall rise Resp: COMMON NORMALS: normal respiratory effort, No retractions, No use of accessory muscles and clear to auscultation bilaterally EFFORT & INSPECTION: Yes symmetric chest movement AUSCULTATION: clear to auscultation bilaterally Cardio: COMMON NORMALS: regular rate, regular rhythm, S1 normal heart sound present, S2 normal heart sound present, No gallops present (Cardio), No murmurs present (Cardio), No rub (Cardio) and Peripheral pulses 2+ throughout RATE: regular rate RHYTHM: regular rhythm HEART SOUNDS: S1 normal heart sound present and S2 normal heart sound present PERIPHERAL PULSES: Peripheral pulses 2+ throughout GI: COMMON NORMALS: Normal to inspection, nondistended, normoactive bowel sounds present, Soft to palpation, non-tender, No hepatosplenomegaly present and no masses AUSCULTATION: Yes normoactive bowel sounds PALPATION: Yes Soft to palpation and Yes No hepatosplenomegaly present RECTAL EXAM: deferred Extremity: COMMON NORMALS: no clubbing, cyanosis or edema and no pedal edema Neuro: COMMON NORMALS: patient oriented x3 Urinary Catheter Management: Keenan: Cath Placed During This Visit: yes Reason for Continuing Indwelling Catheter: Other Urinary Catheter Date of Insertion: 06/21/21 Urinary Catheter Time of Insertion: 16:04 Data : 06/22/21 03:37 06/22/21 03:37 A&P Assessment and plan (1) Subcapital fracture of left hip: Status: Acute (2) Closed fracture of left hip: Status: Acute (3) Parkinson disease: Status: Acute (4) Lewy body dementia: Status: Acute Plan Assessment: Left femoral neck fracture: Parkinsonism Lewy body dementia Plan : s/p Left Bipolar Hip Arthroplasty. Orthopedic surgery on board Pain control Continue Sinemet Continue Aricept Continue aspirin 81 mg p.o. daily Lovenox for DVT prophylaxis #CODE STATUS: Full code #Currently awaiting placement to [facility] Medical Necessity Statement*: Patient was seen and examined this morning, s/p Left Bipolar Hip Arthroplasty. Coding Level of Care Code Acute Word Processing Supervisor for [facility] Fwd Exam Comprehensive Diagnoses Subcapital fracture of left hip S72.012A Closed fracture of left hip S72.002A Parkinson disease G20 Lewy body dementia G31.83; F02.80
[2021-06-22] MEDS: sennosides-docusate Tablet 2 TAB PO ×2 (13:00→21:21)
[2021-06-22] MEDS: cholecalciferol (vitamin D3) 1,000 unit Tablet 1000 UNIT PO (13:00)
[2021-06-22] MEDS: multivitamin therapeutic Tablet 1 TAB PO (13:00)
[2021-06-22] MEDS: calcium carbonate 500 mg Chew Tablet 1000 MG PO ×2 (13:00→21:18)
[2021-06-22] MEDS: enoxaparin 40 mg/0.4 mL Syringe SUBCUT (16:27)
[2021-06-22] MEDS: iron polysaccharide complex 150 mg Capsule PO (19:10)
[2021-06-22] MEDS: CELEcoxib 200 mg Capsule PO (21:17)
[2021-06-22] MEDS: aspirin 81 mg Chew Tablet PO (21:18)
[2021-06-22] MEDS: carbidopa-levodopa 25-100mg Tablet 1 EACH PO (21:19)
[2021-06-22] MEDS: PARoxetine 20 mg Tablet PO (21:20)
[2021-06-22] MEDS: CLONazepam 0.5 mg Tablet PO (21:20)
[2021-06-22] MEDS: donepezil 5 MG Tablet 10 MG PO (21:20)
--- NOTE | 2021-06-22 21:36 | ANE.PACU2 ---
Inpatient post-anesthesia follow up: Airway intact: Yes Vital signs: Temperature 98.9 F Pulse Rate 89 Respiratory Rate 14 Blood Pressure 90/55 Pulse Oximetry 94 Oxygen Delivery Me thod Room Air Oxygen Flow Rate Fraction of Inspir ed Oxygen Hydration adequate: Yes Nausea and vomiting: No Pain level: 1 Mental status: Baseline
[2021-06-23] VITALS: BP 123/69; PULSE 84; RESP 15; TEMP 36.7; O2SAT 91
[2021-06-23] MEDS: acetaminophen 1,000 MG/100 ML PIGGYBACK 400 MG IV ×2 (01:41→08:35)
[2021-06-23 04:00] VITALS: BP 118/71; PULSE 84; RESP 16; TEMP 36.9; O2SAT 96
[2021-06-23 04:33] LABS: Basophils % 0.2 %; Eosinophils # 0.1 10^3/uL (0.0-0.8); Eosinophils % 1.3 %; Hematocrit 27.9 % (37.0-47.0); Hemoglobin 9.2 g/dL (11.5-15.3); Lymphocytes # 0.7 10^3/uL (0.8-4.8); Lymphocytes % 8.3 %; Mean Corpuscular Hemoglobin 29.1 pg (28.0-34.0); Mean Corpuscular Volume 88.3 fl (81-99); Mean Platelet Volume 10.4 fL (7.4-10.4); Monocytes # 0.8 10^3/uL (0.2-0.9); Monocytes % 9.3 %; Neutrophils # 6.86 10^3/uL (1.8-7.7); Neutrophils % 80.5 %; Nucleated Red Blood Cells % 0 %; Platelet Count 136 10^3/cmm (130-400); Red Blood Count 3.16 10^6/uL (4.1-5.3); Red Cell Distribution Width 13.2 % (12.1-15.1); White Blood Count 8.5 10^3/uL (4.0-10.0)
[2021-06-23 04:52] LABS: Anion Gap 13.3 (5-19); Blood Urea Nitrogen 21 mg/dL (8-23); Calcium 8.4 mg/dL (8.5-10.5); Carbon Dioxide 24 mmol/L (22-29); Chloride 107 mmol/L (98-107); Glucose 121 mg/dL (65-115); Osmolality Calculated 296 mOsm/kg (285-295); Potassium 3.3 mmol/L (3.5-5.1); Sodium 141 mmol/L (136-145)
[2021-06-23 08:00] VITALS: BP 114/67; PULSE 79; RESP 15; O2SAT 97
[2021-06-23] MEDS: potassium chloride ER 20 mEq Tablet 40 MEQ PO (08:37)
[2021-06-23] MEDS: cholecalciferol (vitamin D3) 1,000 unit Tablet 1000 UNIT PO (08:37)
[2021-06-23] MEDS: CELEcoxib 200 mg Capsule PO ×2 (08:37→20:13)
[2021-06-23] MEDS: TRAMadol 50 mg Tablet PO (08:37)
[2021-06-23] MEDS: iron polysaccharide complex 150 mg Capsule PO ×2 (08:37→17:22)
[2021-06-23] MEDS: sennosides-docusate Tablet 2 TAB PO ×2 (08:37→17:22)
[2021-06-23] MEDS: multivitamin therapeutic Tablet 1 TAB PO (08:38)
[2021-06-23] MEDS: mupirocin oint 22 gm 1 APPLIC NASAL ×2 (09:18→17:22)
[2021-06-23] MEDS: chlorhexidine gluconate 0.12% Btl 473 mL 30 ML MUCOUS MEM ×2 (09:18→20:19)
[2021-06-23 12:00] VITALS: BP 108/74; PULSE 97; RESP 12; TEMP 37.3; O2SAT 97
--- NOTE | 2021-06-23 12:45 | PM.PN ---
Subjective Subjective: (Late entry) Patient was seen in her room with her daughter in attendance. She is alert and responsive to questions with minimal pain complaints. Medications: Medication Review Details: Generic Name Dose Route Start Last Admin Trade Name Tara PRN Reason Stop Dose Admin Aspirin 81 mg 06/21/21 21:00 06/21/21 20:12 Aspirin 81 Mg Ch ew Tablet PO 81 mg BEDTIME NAZARIO Administration Carbidopa/Levodopa 1 each 06/21/21 21:00 06/21/21 20:12 Carbidopa-Levodo pa 25-100mg Tablet PO 1 each BEDTIME NAZARIO Administration Chlorhexidine Gluc raegan 30 ml 06/22/21 10:50 06/22/21 12:41 Chlorhexidine Gl uconate 0.12% Btl 473 Ml MUCOUS MEM 30 ml QID NAZARIO Administration Clonazepam 0.5 mg 06/21/21 21:00 06/21/21 20:12 Clonazepam 0.5 M g Tablet PO 0.5 mg BEDTIME NAZARIO Administration Donepezil HCl 10 mg 06/21/21 21:00 06/21/21 20:12 Donepezil 5 Mg T ablet PO 10 mg BEDTIME NAZARIO Administration Enoxaparin Sodium 40 mg 06/21/21 16:00 06/21/21 16:24 Enoxaparin 40 Mg /0.4 Ml Syringe SUBCUT 40 mg Q24H NAZARIO Administration Mupirocin 1 applic 06/22/21 10:50 06/22/21 12:45 Mupirocin Oint 2 2 Gm NASAL 06/27/21 10:49 1 applic BID NAZARIO Administration Paroxetine HCl 20 mg 06/21/21 21:00 06/21/21 20:13 Paroxetine 20 Mg Tablet PO 20 mg BEDTIME NAZARIO Administration Vitals/I&O/Wt Last Vital Signs Temp 98.6 F 06/24/21 20:00 Pulse 85 06/24/21 20:00 Resp 20 H 06/24/21 20:00 BP 133/73 06/24/21 20:00 Pulse Ox 95 06/24/21 20:00 06/24/21 06/24/21 06/24/21 06:59 14:59 22:59 Intake Total 480 / 480 240 / 720 Output Total 350 / 350 Balance -350 / 610 480 / 480 240 / 720 Physical Exam Const: COMMON NORMALS: no acute distress, average body habitus and alert GENERAL APPEARANCE: cooperative and comfortable ORIENTATION/CONSCIOUSNESS: Yes awake HENMT: COMMON NORMALS: normocephalic and atraumatic HEAD & SCALP: normocephalic and atraumatic Eye: GENERAL EYE: appearance normal, both eyes and all related structures Chest: COMMONS NORMALS: normal inspection of the chest Resp: COMMON NORMALS: normal respiratory effort EFFORT & INSPECTION: Yes symmetric chest movement Extremity: LEFT LOWER EXTREMITY: Yes hip joint (dressing dry and intact with minimal ecchymosis) Left hip: Yes inspection (No significant swelling.) and Yes neurovascular exam (intact distally) Neuro: SENSORIUM/ORIENTATION: Yes alert and Yes other (Dementia) Psych: APPEARANCE: Yes grossly normal ATTITUDE: Yes calm ATTENTION/CONCENTRATION: Yes attention grossly intact Skin: COMMON NORMALS: no rashes or lesions noted GENERAL SKIN EXAM: no rashes or lesions noted Urinary Catheter Management: Monroe: Cath Placed During This Visit: yes Reason for Continuing Indwelling Catheter: Other Urinary Catheter Date of Insertion: 06/21/21 Urinary Catheter Time of Insertion: 16:04 Data : 06/24/21 18:46 06/24/21 05:39 Micro: Microbiology 06/21/21 15:53 Urine Culture - Final Urine,Clean Catch Enterobacter aerogenes A&P Assessment and plan (1) Subcapital fracture of left hip: The 75-year-old woman was admitted through the emergency department with a diagnosis of left subcapital hip fracture. She has comorbidities including Parkinson's disease, and she was admitted to the medical service. She is working with PT, but she will likely require longterm at the time of discharge. Her daughter is working with sr. social media & mobile manager on placement. Status: Acute (2) Parkinson disease: Status: Acute (3) Lewy body dementia: Status: Acute Attestations Medical Necessity Statement*: Ongoing post hip fracture rehab and medical management. Coding Level of Care Code Acute Assistant Professor Of Marine Biology for [facility] Diagnoses Subcapital fracture of left hip S72.012A Parkinson disease G20 Lewy body dementia G31.83; F02.80
--- NOTE | 2021-06-23 13:02 | PC.OT ---
OT EVALUATION ORDERS RECEIVED; PATIENT SEEN WITH DAUGHTER PRESENT. PER DAUGHTER PATIENT IS DEPENDENT IN ALL ADL CARE EXCEPT FEEDING WHICH IS SBA IF FOOD PREPARED PROPERLY. PATIENT AND DAUGHTER REPORT CURRENTLY ABILITY TO FEED SELF WHILE HERE AT HOSPITAL. PATIENT DOES PRESENT WITH DIMINISHED UB STRENGTH. HOWEVER, DUE TO PLOF TOTAL ASSIST AND FEED SELF; PATIENT IS CURRENTLY AT PLOF. NO FURTHER SKILLED OT REQUIRED.
--- NOTE | 2021-06-23 14:36 | P.PN_ITS ---
Subjective Subjective: Patient was seen this morning, nursing staff at bedside, she is alert to person, to place, not to time, she mumbles at times, it is hard to interpret her at times, but she has no pain complaints, no fever complaints, no abdominal pain complaints, has not had a bowel movement Vitals/I&O/Wt Last Vital Signs Temp 99.1 F 06/23/21 12:00 Pulse 97 06/23/21 12:00 Resp 12 06/23/21 12:00 BP 108/74 06/23/21 12:00 Pulse Ox 97 06/23/21 12:00 06/22/21 06/23/21 06/23/21 22:59 06:59 14:59 Intake Total 580 / 850 160 / 1010 610 / 610 Output Total 300 / 700 Balance 580 / 450 -140 / 310 610 / 610 Weight last 48 hrs Weight 73.936 kg Physical Exam Const: COMMON NORMALS: no acute distress and patient oriented x3 Resp: COMMON NORMALS: normal respiratory effort, No retractions, No use of accessory muscles and clear to auscultation bilaterally AUSCULTATION: clear to auscultation bilaterally Cardio: COMMON NORMALS: regular rate, regular rhythm, S1 normal heart sound present and S2 normal heart sound present RATE: regular rate RHYTHM: regular rhythm HEART SOUNDS: S1 normal heart sound present and S2 normal heart sound present GI: COMMON NORMALS: Normal to inspection, nondistended, normoactive bowel sounds present, Soft to palpation, non-tender and No hepatosplenomegaly present PALPATION: Yes Soft to palpation and Yes No hepatosplenomegaly present Extremity: COMMON NORMALS: no pedal edema Neuro: COMMON NORMALS: patient oriented x3 Urinary Catheter Management: Monroe: Cath Placed During This Visit: yes Reason for Continuing Indwelling Catheter: Other Urinary Catheter Date of Insertion: 06/21/21 Urinary Catheter Time of Insertion: 16:04 Data : 06/23/21 03:32 06/23/21 03:32 Micro: Microbiology 06/21/21 15:53 Urine Culture - Preliminary Urine,Clean Catch Gram Negative Rods A&P Assessment and plan (1) Subcapital fracture of left hip: Status: Acute (2) Closed fracture of left hip: Status: Acute (3) Parkinson disease: Status: Acute (4) Lewy body dementia: Status: Acute Plan Assessment: Left femoral neck fracture: Parkinsonism Lewy body dementia Plan : s/p Left Bipolar Hip Arthroplasty. Orthopedic surgery on board Pain control Continue Sinemet Continue Aricept Continue aspirin 81 mg p.o. daily Lovenox for DVT prophylaxis Potassium replacement #CODE STATUS: Full code #Currently awaiting placement to [facility] Medical Necessity Statement*: Patient requires hospitalization for hip fracture Coding Level of Care Code Acute Trading Floor Operator for [facility] Diagnoses Subcapital fracture of left hip S72.012A Closed fracture of left hip S72.002A Parkinson disease G20 Lewy body dementia G31.83; F02.80
[2021-06-23 15:16] VITALS: BP 122/72; PULSE 85; RESP 14; TEMP 37.1; O2SAT 98
[2021-06-23] MEDS: enoxaparin 40 mg/0.4 mL Syringe SUBCUT (17:19)
[2021-06-23] MEDS: acetaminophen 500 mg Tablet 1000 MG PO (17:19)
[2021-06-23] MEDS: calcium carbonate 500 mg Chew Tablet 1000 MG PO (17:21)
--- NOTE | 2021-06-23 19:10 | PC.NURSE ---
Report to Elsa Mott LPN at this time.
[2021-06-23 20:00] VITALS: BP 122/73; PULSE 87; RESP 17; TEMP 36.7; O2SAT 97
[2021-06-23] MEDS: carbidopa-levodopa 25-100mg Tablet 1 EACH PO (20:14)
[2021-06-23] MEDS: donepezil 5 MG Tablet 10 MG PO (20:14)
[2021-06-23] MEDS: aspirin 81 mg Chew Tablet PO (20:14)
[2021-06-23] MEDS: CLONazepam 0.5 mg Tablet PO (20:14)
[2021-06-23] MEDS: PARoxetine 20 mg Tablet PO (20:15)
[2021-06-24] VITALS: BP 109/67; PULSE 81; RESP 16; TEMP 36.6; O2SAT 95
[2021-06-24] MEDS: acetaminophen 500 mg Tablet 1000 MG PO ×4 (00:39→23:41)
[2021-06-24 04:00] VITALS: BP 115/71; PULSE 80; RESP 16; TEMP 36.6; O2SAT 95
[2021-06-24 05:45] LABS: Basophils % 0.4 %; Eosinophils # 0.2 10^3/uL (0.0-0.8); Eosinophils % 2.7 %; Hematocrit 27.1 % (37.0-47.0); Hemoglobin 8.4 g/dL (11.5-15.3); Lymphocytes # 1.2 10^3/uL (0.8-4.8); Lymphocytes % 17.8 %; Mean Corpuscular Hemoglobin 28.7 pg (28.0-34.0); Mean Corpuscular Volume 92.5 fl (81-99); Mean Platelet Volume 10.3 fL (7.4-10.4); Monocytes # 0.8 10^3/uL (0.2-0.9); Monocytes % 11.3 %; Neutrophils % 67.5 %; Nucleated Red Blood Cells % 0 %; Platelet Count 146 10^3/cmm (130-400); Red Blood Count 2.93 10^6/uL (4.1-5.3); Red Cell Distribution Width 13.4 % (12.1-15.1)
[2021-06-24 06:01] LABS: Anion Gap 12.9 (5-19); Blood Urea Nitrogen 26 mg/dL (8-23); Calcium 8.5 mg/dL (8.5-10.5); Carbon Dioxide 23 mmol/L (22-29); Chloride 108 mmol/L (98-107); Glucose 108 mg/dL (65-115); Osmolality Calculated 295 mOsm/kg (285-295); Potassium 3.9 mmol/L (3.5-5.1); Sodium 140 mmol/L (136-145)
[2021-06-24 07:07] VITALS: BP 116/70; PULSE 80; RESP 16; TEMP 36.9; O2SAT 97
[2021-06-24] MEDS: multivitamin therapeutic Tablet 1 TAB PO (08:30)
[2021-06-24] MEDS: calcium carbonate 500 mg Chew Tablet 1000 MG PO ×2 (08:30→17:36)
[2021-06-24] MEDS: CELEcoxib 200 mg Capsule PO ×2 (08:31→22:01)
[2021-06-24] MEDS: cholecalciferol (vitamin D3) 1,000 unit Tablet 1000 UNIT PO (08:31)
[2021-06-24] MEDS: sennosides-docusate Tablet 2 TAB PO ×2 (08:31→17:37)
[2021-06-24] MEDS: iron polysaccharide complex 150 mg Capsule PO ×2 (08:31→17:38)
[2021-06-24 09:05] LABS: Ferritin 210 ng/mL (15-150); Iron 13 ug/dL (37-145); Percent Saturation 7.7 % (20-50); Total Iron Binding Capacity 167 mcg/dl; Unsaturated Iron Binding 154 ug/dL (112-347)
--- NOTE | 2021-06-24 10:13 | PC.SOCIAL ---
IMM Update pg 2 of IMM updated and reviewed w/ patients and daughter via phone. Explained if they would like to appeal they could call CM to get # on the day of discharge. Copy placed in chart.
--- NOTE | 2021-06-24 11:09 | PM.PN ---
Vitals/I&O/Wt Last Vital Signs Temp 98.4 F 06/24/21 07:07 Pulse 80 06/24/21 07:07 Resp 16 06/24/21 07:07 BP 116/70 06/24/21 07:07 Pulse Ox 97 06/24/21 07:07 06/23/21 06/24/21 06/24/21 22:59 06:59 14:59 Intake Total 350 / 960 Output Total 350 / 350 Balance 350 / 960 -350 / 610 Physical Exam Const: COMMON NORMALS: no acute distress and patient oriented x3 Resp: COMMON NORMALS: normal respiratory effort, No retractions, No use of accessory muscles and clear to auscultation bilaterally AUSCULTATION: clear to auscultation bilaterally Cardio: COMMON NORMALS: regular rate, regular rhythm, S1 normal heart sound present and S2 normal heart sound present RATE: regular rate RHYTHM: regular rhythm HEART SOUNDS: S1 normal heart sound present and S2 normal heart sound present GI: COMMON NORMALS: Normal to inspection, nondistended, normoactive bowel sounds present, Soft to palpation and non-tender PALPATION: Yes Soft to palpation Extremity: COMMON NORMALS: no pedal edema Neuro: COMMON NORMALS: patient oriented x3 Psych: COMMON NORMALS: mental status grossly normal Urinary Catheter Management: Monroe: Cath Placed During This Visit: yes Reason for Continuing Indwelling Catheter: Other Urinary Catheter Date of Insertion: 06/21/21 Urinary Catheter Time of Insertion: 16:04 Data : 06/24/21 05:39 06/24/21 05:39 Micro: Microbiology 06/21/21 15:53 Urine Culture - Preliminary Urine,Clean Catch Gram Negative Rods A&P Assessment and plan (1) Subcapital fracture of left hip: Status: Acute (2) Closed fracture of left hip: Status: Acute (3) Parkinson disease: Status: Acute (4) Lewy body dementia: Status: Acute (5) GI bleed: Status: Acute Plan Assessment: Left femoral neck fracture: Parkinsonism Lewy body dementia GI bleed, anemia Plan : s/p Left Bipolar Hip Arthroplasty. Orthopedic surgery on board Pain control Continue Sinemet Continue Aricept Continue aspirin 81 mg p.o. daily Hold for DVT prophylaxis Low iron, ferritin, indicating slow GI bleed, as hemoglobin is down to 8.4, check hemoglobin at noon and 6 PM, transfuse if less than 7, Protonix 40 IV twice daily, Carafate, monitor for bloody or black stools, monitor for hemodynamic compromise Potassium replacement #CODE STATUS: Full code #Currently awaiting placement to [facility] Medical Necessity Statement*: Patient requires hospitalization for left hip fracture, anemia Coding Level of Care Code Acute Behavioral Psychologist for [facility] Fwd Diagnoses Subcapital fracture of left hip S72.012A Closed fracture of left hip S72.002A Parkinson disease G20 Lewy body dementia G31.83; F02.80 GI bleed K92.2
[2021-06-24] MEDS: TRAMadol 50 mg Tablet PO (11:54)
[2021-06-24 12:33] VITALS: BP 119/63; PULSE 87; RESP 18; O2SAT 97
[2021-06-24 13:54] LABS: Basophils % 0.3 %; Eosinophils # 0.1 10^3/uL (0.0-0.8); Eosinophils % 1.5 %; Hematocrit 25.9 % (37.0-47.0); Hemoglobin 8.2 g/dL (11.5-15.3); Lymphocytes # 0.8 10^3/uL (0.8-4.8); Lymphocytes % 10.1 %; Mean Corpuscular HGB Conc 31.7 g/dL (30.0-36.0); Mean Corpuscular Hemoglobin 29.4 pg (28.0-34.0); Mean Corpuscular Volume 92.8 fl (81-99); Mean Platelet Volume 10.7 fL (7.4-10.4); Monocytes # 0.6 10^3/uL (0.2-0.9); Monocytes % 8.5 %; Neutrophils # 5.89 10^3/uL (1.8-7.7); Neutrophils % 79.1 %; Nucleated Red Blood Cells % 0 %; Platelet Count 167 10^3/cmm (130-400); Red Blood Count 2.79 10^6/uL (4.1-5.3); Red Cell Distribution Width 13.5 % (12.1-15.1); White Blood Count 7.4 10^3/uL (4.0-10.0)
[2021-06-24] MEDS: sucralfate 1 gm/10 mL Oral Liq UDC PO ×2 (14:12→23:41)
[2021-06-24] MEDS: pantoprazole 40 mg SDV IVP (14:12)
[2021-06-24] MEDS: chlorhexidine gluconate 0.12% Btl 473 mL 30 ML MUCOUS MEM ×2 (14:12→17:39)
[2021-06-24 15:41] VITALS: BP 153/83; PULSE 91; RESP 18; TEMP 36.7; O2SAT 99
[2021-06-24] MEDS: mupirocin oint 22 gm 1 APPLIC NASAL (17:39)
--- NOTE | 2021-06-24 18:30 | PM.PN ---
Subjective Subjective: Patient was seen in her room. She is in good spirits with no significant complaints of pain in the left hip. Medications: Medication Review Details: Generic Name Dose Route Start Last Admin Trade Name Tara PRKecia Reason Stop Dose Admin Aspirin 81 mg 06/21/21 21:00 06/21/21 20:12 Aspirin 81 Mg Ch ew Tablet PO 81 mg BEDTIME NAZARIO Administration Carbidopa/Levodopa 1 each 06/21/21 21:00 06/21/21 20:12 Carbidopa-Levodo pa 25-100mg Tablet PO 1 each BEDTIME NAZARIO Administration Chlorhexidine Gluc raegan 30 ml 06/22/21 10:50 06/22/21 12:41 Chlorhexidine Gl uconate 0.12% Btl 473 Ml MUCOUS MEM 30 ml QID NAZARIO Administration Clonazepam 0.5 mg 06/21/21 21:00 06/21/21 20:12 Clonazepam 0.5 M g Tablet PO 0.5 mg BEDTIME NAZARIO Administration Donepezil HCl 10 mg 06/21/21 21:00 06/21/21 20:12 Donepezil 5 Mg T ablet PO 10 mg BEDTIME NAZARIO Administration Enoxaparin Sodium 40 mg 06/21/21 16:00 06/21/21 16:24 Enoxaparin 40 Mg /0.4 Ml Syringe SUBCUT 40 mg Q24H NAZARIO Administration Mupirocin 1 applic 06/22/21 10:50 06/22/21 12:45 Mupirocin Oint 2 2 Gm NASAL 06/27/21 10:49 1 applic BID NAZARIO Administration Paroxetine HCl 20 mg 06/21/21 21:00 06/21/21 20:13 Paroxetine 20 Mg Tablet PO 20 mg BEDTIME NAZARIO Administration Vitals/I&O/Wt Last Vital Signs Temp 98.6 F 06/24/21 20:00 Pulse 85 06/24/21 20:00 Resp 20 H 06/24/21 20:00 BP 133/73 06/24/21 20:00 Pulse Ox 95 06/24/21 20:00 06/24/21 06/24/21 06/24/21 06:59 14:59 22:59 Intake Total 480 / 480 240 / 720 Output Total 350 / 350 Balance -350 / 610 480 / 480 240 / 720 Physical Exam Const: COMMON NORMALS: no acute distress, average body habitus and alert GENERAL APPEARANCE: cooperative and comfortable ORIENTATION/CONSCIOUSNESS: Yes awake HENMT: COMMON NORMALS: normocephalic and atraumatic HEAD & SCALP: normocephalic and atraumatic Eye: GENERAL EYE: appearance normal, both eyes and all related structures Chest: COMMONS NORMALS: normal inspection of the chest Resp: COMMON NORMALS: normal respiratory effort EFFORT & INSPECTION: Yes symmetric chest movement Extremity: LEFT LOWER EXTREMITY: Yes hip joint (dressing dry and intact, no drainage) Left hip: Yes inspection (No swelling about the hip), Yes palpation (No tenderness) and Yes neurovascular exam (Intact distally) Neuro: SENSORIUM/ORIENTATION: Yes alert and Yes other (Dementia) Psych: APPEARANCE: Yes grossly normal ATTITUDE: Yes calm ATTENTION/CONCENTRATION: Yes attention grossly intact Skin: COMMON NORMALS: no rashes or lesions noted GENERAL SKIN EXAM: no rashes or lesions noted Urinary Catheter Management: Monroe: Cath Placed During This Visit: yes Reason for Continuing Indwelling Catheter: Other Urinary Catheter Date of Insertion: 06/21/21 Urinary Catheter Time of Insertion: 16:04 Data : 06/24/21 18:46 06/24/21 05:39 Micro: Microbiology 06/21/21 15:53 Urine Culture - Final Urine,Clean Catch Enterobacter aerogenes A&P Assessment and plan (1) Subcapital fracture of left hip: The 75-year-old woman was admitted through the emergency department with a diagnosis of left subcapital hip fracture. She has comorbidities including Parkinson's disease, and she was admitted to the medical service. She continues to work with physical therapy and will require assisted at the time of discharge. She has reportedly been accepted to [facility] and is awaiting approval. Status: Acute (2) Parkinson disease: Status: Acute (3) Lewy body dementia: Status: Acute Attestations Medical Necessity Statement*: Continuing inpatient status for post operative hip rehab and medical monitoring. Coding Level of Care Code Acute [employer] Consultant for [facility] Diagnoses Subcapital fracture of left hip S72.012A Parkinson disease G20 Lewy body dementia G31.83; F02.80
[2021-06-24 19:15] LABS: Hematocrit 23.3 % (37.0-47.0); Hemoglobin 7.9 g/dL (11.5-15.3)
[2021-06-24 20:00] VITALS: BP 133/73; PULSE 85; RESP 20; TEMP 37; O2SAT 95
[2021-06-24] MEDS: carbidopa-levodopa 25-100mg Tablet 1 EACH PO (22:01)
[2021-06-24] MEDS: aspirin 81 mg Chew Tablet PO (22:01)
[2021-06-24] MEDS: CLONazepam 0.5 mg Tablet PO (22:02)
[2021-06-24] MEDS: PARoxetine 20 mg Tablet PO (22:02)
[2021-06-24] MEDS: donepezil 5 MG Tablet 10 MG PO (22:03)
[2021-06-25] VITALS: BP 132/74; PULSE 92; RESP 20; TEMP 36.9; O2SAT 96
[2021-06-25] MEDS: pantoprazole 40 mg SDV IVP ×3 (00:04→23:58)
[2021-06-25 02:19] LABS: SARS Covid-2 Antigen Negative (Negative)
[2021-06-25 04:00] VITALS: BP 115/67; PULSE 84; RESP 16; TEMP 36.9; O2SAT 96
[2021-06-25 05:22] LABS: Basophils % 0.6 %; Eosinophils # 0.2 10^3/uL (0.0-0.8); Eosinophils % 3.4 %; Hematocrit 23.4 % (37.0-47.0); Hemoglobin 7.9 g/dL (11.5-15.3); Lymphocytes # 1.3 10^3/uL (0.8-4.8); Lymphocytes % 19.4 %; Mean Corpuscular HGB Conc 33.8 g/dL (30.0-36.0); Mean Corpuscular Hemoglobin 29.5 pg (28.0-34.0); Mean Corpuscular Volume 87.3 fl (81-99); Mean Platelet Volume 10.2 fL (7.4-10.4); Monocytes # 0.6 10^3/uL (0.2-0.9); Monocytes % 9.3 %; Neutrophils # 4.51 10^3/uL (1.8-7.7); Neutrophils % 66.7 %; Nucleated Red Blood Cells % 0 %; Platelet Count 164 10^3/cmm (130-400); Red Blood Count 2.68 10^6/uL (4.1-5.3); Red Cell Distribution Width 13.6 % (12.1-15.1); White Blood Count 6.8 10^3/uL (4.0-10.0)
[2021-06-25 05:41] LABS: Alanine Aminotransferase < 5 U/L (0-33); Alkaline Phosphatase 81 IU/L (35-105); Aspartate Amino Transferase 19 U/L (0-32); Blood Urea Nitrogen 26 mg/dL (8-23); Calcium 8.5 mg/dL (8.5-10.5); Carbon Dioxide 25 mmol/L (22-29); Chloride 110 mmol/L (98-107); Globulin 2.4 g/dL (1.3-4.6); Glucose 98 mg/dL (65-115); Magnesium 2.1 mg/dL (1.7-2.3); Osmolality Calculated 301 mOsm/kg (285-295); Sodium 143 mmol/L (136-145); Total Bilirubin 0.4 mg/dL (0.15-1.2); Total Protein 5.4 g/dL (6.6-8.7)
[2021-06-25 07:36] VITALS: BP 132/73; PULSE 89; RESP 12; TEMP 36.9; O2SAT 97
[2021-06-25] MEDS: calcium carbonate 500 mg Chew Tablet 1000 MG PO ×2 (09:18→17:42)
[2021-06-25] MEDS: sennosides-docusate Tablet 2 TAB PO ×2 (09:18→17:42)
[2021-06-25] MEDS: multivitamin therapeutic Tablet 1 TAB PO (09:18)
[2021-06-25] MEDS: cholecalciferol (vitamin D3) 1,000 unit Tablet 1000 UNIT PO (09:19)
[2021-06-25] MEDS: CELEcoxib 200 mg Capsule PO (09:19)
[2021-06-25] MEDS: acetaminophen 500 mg Tablet 1000 MG PO ×3 (09:19→23:19)
[2021-06-25] MEDS: iron polysaccharide complex 150 mg Capsule PO ×2 (09:19→17:43)
[2021-06-25] MEDS: chlorhexidine gluconate 0.12% Btl 473 mL 30 ML MUCOUS MEM ×3 (09:22→20:20)
[2021-06-25] MEDS: mupirocin oint 22 gm 1 APPLIC NASAL ×2 (09:23→18:02)
[2021-06-25] MEDS: sulfamethoxazole-trimeth DS 160-800 mg Tablet 1 TAB PO ×2 (09:24→18:37)
--- NOTE | 2021-06-25 10:20 | P.DS_ITS ---
Discharge Providers Date of Admission: 06/21/21 14:53 Date of Discharge: June 25, 2021 Attending Provider at Admission: Donnie Amaro MD Attending Provider at Discharge: Demarco Stauffer MD Primary Care Provider: Emile Castillo MD Diagnoses at Discharge Discharge Diagnosis (1) Subcapital fracture of left hip: Status: Acute (2) Parkinson disease: Status: Acute (3) Lewy body dementia: Status: Acute Reason for Visit Reason for Visit: Left hip, left arm pain Hospital Course Hospital Course This is a 75-year-old female with a past medical history of Parkinson's disease, Lewy body dementia, who presented to [facility] due to left lower extremity pain due to mechanical fall Patient was admitted to [facility] for left hip fracture, status post left bipolar hip arthroplasty, clinically doing well after surgery, discharged to senior care for rehab. Patient also developed anemia during her hospitalizations, hemoglobin as low as 7.9, no bloody or black stools, no hemodynamic compromise, patient is blood work showed evidence of iron deficiency anemia, her aspirin and her Lovenox for DVT prophylaxis were discontinued. Her hemoglobin remained stable at 7.9. I have discharged her on Protonix 40 twice daily with Carafate with instructions to monitor for bloody or black stools, lightheadedness or hemodynamic compromise. Follow-up with general surgery in the next few weeks for consideration of EGD. Hold aspirin, Celebrex, Lovenox as outpatient. Monitor hemoglobin as outpatient for the next 7 days.If she were to have bloody or black stools or lightheadedness or hemodynamic compromise or if her hemoglobin drops below 7 senior care was instructed to bring her back to the emergency room. Physical Exam Const: COMMON NORMALS: no acute distress and patient oriented x3 Resp: COMMON NORMALS: normal respiratory effort, No retractions, No use of accessory muscles and clear to auscultation bilaterally AUSCULTATION: clear to auscultation bilaterally Cardio: COMMON NORMALS: regular rate, regular rhythm, S1 normal heart sound present and S2 normal heart sound present RATE: regular rate RHYTHM: regular rhythm HEART SOUNDS: S1 normal heart sound present and S2 normal heart sound present GI: COMMON NORMALS: Normal to inspection, nondistended, normoactive bowel sounds present, Soft to palpation and non-tender PALPATION: Yes Soft to p alpation Extremity: COMMON NORMALS: no pedal edema Neuro: COMMON NORMALS: patient oriented x3 Urinary Catheter Management: Monroe: Cath Placed During This Visit: yes Reason for Continuing Indwelling Catheter: Other Urinary Catheter Date of Insertion: 06/21/21 Urinary Catheter Time of Insertion: 16:04 Discharge Data Studies Completed and Pending Completed Studies During Hospitalization Category Date Time Status XR chest 1V 24461 Stat Exams 06/21/21 14:53 Completed XR elbow LT 2V [id number] Urgent Exams 06/21/21 13:42 Completed XR femur LT min 2V* [id number] Stat Exams 06/21/21 13:52 Completed XR hip LT 2-3V wo/w pel* [id number] Urgent Exams 06/21/21 13:41 Completed XR pelvis 1-2V* [id number] Urgent Exams 06/22/21 09:54 Completed XR shoulder LT 1V 19371 Urgent Exams 06/21/21 13:41 Completed Pending at discharge Category Date Time Status Complete Blood Count w/Auto AM LABS Lab 06/26/21 04:00 Ordered Complete Blood Count w/Auto AM LABS Lab 06/27/21 04:00 Ordered Comprehensive Metabolic Panel AM LABS Lab 06/26/21 04:00 Ordered Comprehensive Metabolic Panel AM LABS Lab 06/27/21 04:00 Ordered Magnesium AM LABS Lab 06/26/21 04:00 Ordered Magnesium AM LABS Lab 06/27/21 04:00 Ordered Occult Blood Stool [Immunochemical Fecal OCB] Routine Lab 06/24/21 08:35 Uncollected Radiology Impressions Hip/Pelvis X-Ray 06/21/21 13:41 IMPRESSION: Left femoral neck fracture. Shoulder X-Ray 06/21/21 13:41 IMPRESSION: No acute findings. Elbow X-Ray 06/21/21 13:42 IMPRESSION: No evidence of fracture or dislocation. Femur X-Ray 06/21/21 13:52 IMPRESSION: Osteopenia. No evidence of fracture. Chest X-Ray 06/21/21 14:53 IMPRESSION: No acute findings. Pelvis X-Ray 06/22/21 09:54 IMPRESSION: 1. Postoperative changes as above. 2. No acute bony or hardware abnormality identified. Laboratory Results WBC 6.8 10^3/uL (4.0-10.0) 06/25/21 05:08 RBC 2.68 10^6/uL (4.1-5.3) L 06/25/21 05:08 Hgb 7.9 g/dL (11.5-15.3) L 06/25/21 05:08 Hct 23.4 % (37.0-47.0) L 06/25/21 05:08 MCV 87.3 fl (81-99) D 06/25/21 05:08 MCH 29.5 pg (28.0-34.0) 06/25/21 05:08 MCHC 33.8 g/dL (30.0-36.0) D 06/25/21 05:08 RDW 13.6 % (12.1-15.1) 06/25/21 05:08 Plt Count 164 10^3/cmm (130-400) 06/25/21 05:08 MPV 10.2 fL (7.4-10.4) 06/25/21 05:08 Neut % (Auto) 66.7 % 06/25/21 05:08 Lymph % (Auto) 19.4 % 06/25/21 05:08 Nelson % (Auto) 9.3 % 06/25/21 05:08 Eos % (Auto) 3.4 % 06/25/21 05:08 Baso % (Auto) 0.6 % 06/25/21 05:08 Neut # (Auto) 4.51 10^3/uL (1.8-7.7) 06/25/21 05:08 Lymph # (Auto) 1.3 10^3/uL (0.8-4.8) 06/25/21 05:08 Nelson # (Auto) 0.6 10^3/uL (0.2-0.9) 06/25/21 05:08 Eos # (Auto) 0.2 10^3/uL (0.0-0.8) 06/25/21 05:08 Baso # (Auto) 0.0 10^3/uL (0.0-0.1) 06/25/21 05:08 Nucleated RBC % (auto) 0 % 06/25/21 05:08 Nucleated RBCs # 0.0 /100WBC 06/25/21 05:08 Sodium 143 mmol/L (136-145) 06/25/21 05:08 Potassium 4.0 mmol/L (3.5-5.1) 06/25/21 05:08 Chloride 110 mmol/L (98-107) H 06/25/21 05:08 Carbon Dioxide 25 mmol/L (22-29) 06/25/21 05:08 Anion Gap 12.0 (5-19) 06/25/21 05:08 BUN 26 mg/dL (8-23) H 06/25/21 05:08 Creatinine 0.7 mg/dL (0.5-0.9) 06/25/21 05:08 GFR Calculation Not Reportable 06/25/21 05:08 Glucose 98 mg/dL (65-115) 06/25/21 05:08 Calculated Osmolality 301 mOsm/kg (285-295) H 06/25/21 05:08 Calcium 8.5 mg/dL (8.5-10.5) 06/25/21 05:08 Magnesium 2.1 mg/dL (1.7-2.3) 06/25/21 05:08 Iron 13 ug/dL (37-145) L 06/24/21 05:39 TIBC 167 mcg/dl 06/24/21 05:39 % Saturation 7.7 % (20-50) L 06/24/21 05:39 Unsat Iron Binding 154 ug/dL (112-347) 06/24/21 05:39 Ferritin 210 ng/mL (15-150) H 06/24/21 05:39 Total Bilirubin 0.4 mg/dL (0.15-1.2) 06/25/21 05:08 AST 19 U/L (0-32) 06/25/21 05:08 ALT < 5 U/L (0-33) 06/25/21 05:08 Alkaline Phosphatase 81 IU/L (35-105) 06/25/21 05:08 Total Protein 5.4 g/dL (6.6-8.7) L 06/25/21 05:08 Albumin 3.0 g/dL (3.5-5.2) L 06/25/21 05:08 Globulin 2.4 g/dL (1.3-4.6) 06/25/21 05:08 Urine Color Yellow (Yellow) 06/21/21 15:53 Urine Appearance Hazy (CLEAR) A 06/21/21 15:53 Urine pH 5 (5-7) 06/21/21 15:53 Ur Specific Irons 1.015 (1.005-1.030) 06/21/21 15:53 Urine Protein Neg (Negative) 06/21/21 15:53 Urine Glucose (UA) Norm (Normal) 06/21/21 15:53 Urine Ketones Negative (Negative) 06/21/21 15:53 Urine Blood Neg (Negative) 06/21/21 15:53 Urine Nitrate Positive (Negative) H 06/21/21 15:53 Urine Bilirubin Neg (Negative) 06/21/21 15:53 Urine Urobilinogen Norm mg/dL (Negative) 06/21/21 15:53 Ur Leukocyte Esterase Negative (Negative) 06/21/21 15:53 Urine RBC None /hpf (0-2) 06/21/21 15:53 Urine WBC 10-15 /hpf (0-5) H 06/21/21 15:53 Ur Squamous Epith Cells Rare /hpf (0-5) 06/21/21 15:53 Amorphous Sediment Not Reportable 06/21/21 15:53 Urine Bacteria 4+ /hpf (NONE) H 06/21/21 15:53 Urine Mucus 1+ /hpf 06/21/21 15:53 Coronavirus 229E (PCR) Not detected (NOT DETECT) 06/21/21 15:34 SARS-CoV-2 (PCR) Not detected (NOT DETECT) 06/21/21 15:34 SARS-CoV-2 Ag (Rapid) Negative (Negative) 06/25/21 01:53 Vitals Last Vital Signs Temp 98.5 F 06/25/21 07:36 Pulse 89 06/25/21 07:36 Resp 12 06/25/21 07:36 BP 132/73 06/25/21 07:36 Pulse Ox 97 06/25/21 07:36 Discharge Plan Discharge Patient Disposition: Xfer SNF Condition: Stable Prescriptions: New sucralfate 100 mg/mL Suspension 1 g PO Q12H 30 Days Qty: 600 0RF Ferrex 150 150 mg iron Capsule 150 mg PO BIDWM 30 Days Qty: 30 0RF sulfamethoxazole-trimethoprim 800-160 mg Tablet 1 tab PO BID 5 Days Qty: 10 0RF oxycodone 5 mg Tablet 5 mg PO Q4H PRN (Reason: Moderate Pain) 7 Days Qty: 42 0RF cholecalciferol (vitamin D3) 25 mcg (1,000 unit) Tablet 1,000 unit PO DAILY 30 Days Qty: 30 0RF Thera 400 mcg Tablet 1 tab PO DAILY 30 Days Qty: 30 0RF Protonix 40 mg tablet,delayed release (DR/EC) 40 mg PO BID 30 Days Qty: 60 0RF oxycodone 5 mg tablet 5 mg PO Q4H PRN (Reason: pain) 7 Days Qty: 42 0RF Continued (DME) Arsen Lift See Rx Instructions .Route .MEDSUPPLY Qty: 1 0RF Rx Instructions: As directed (DME) Depends Pull Ups See Rx Instructions .Route .MEDSUPPLY Qty: 1 0RF Rx Instructions: As directed (DME) Hospital bed See Rx Instructions .Route .MEDSUPPLY Qty: 1 0RF Rx Instructions: As directed donepezil 10 mg tablet 10 mg PO BEDTIME 0RF paroxetine HCl 20 mg tablet 20 mg PO BEDTIME 0RF clonazepam 0.5 mg tablet 0.5 mg PO BEDTIME 0RF carbidopa-levodopa 25-100 mg tablet,disintegrating 1 tab PO BEDTIME 0RF Held aspirin 81 mg Tablet,Chewable 81 mg PO BEDTIME 0RF Hold Instructions: Resume on 07/28/21. hold until you see general surgery Discontinued meloxicam 15 mg Tablet 15 mg PO BEDTIME 0RF Discharge Orders: Discharge Order (Routine); Ordered 06/25/21 Ordered By: Demarco Stauffer Referrals: [facility] [Outside] Floridalma Cardoso MD [Physician] - 07/07/21 3:00 pm Jamin Aldana MD [Physician] - 07/08/21 9:50 am Emile Castillo MD [Primary Care Provider] - Discharge Diet: Regular Discharge Activity: Increase activity as tolerated, Limit activity as instructed, Use walker/crutches as instructed and As per PT/OT instructions Patient Instructions: Gastrointestinal Bleeding (DC) Activity Restrictions/Additional Instructions: -Monitor hemoglobin, on a daily basis for the next 7 days -If hemoglobin less than 7, back to the emergency room for blood transfusion and consideration of EGD -I have sent a referral to Dr. Aldana for consideration of EGD -If you develop bloody or black stools or feel lightheaded or dizzy please come back to emergency room -Please avoid blood thinners, NSAIDs, aspirin -Please continue to be immobile, especially after surgery, you have increased risk of blood clots, however we cannot put you on a blood thinner due to your anemia thus you have an increased risk of blood clots, continue to be mobile POSTERIOR hip precautions, left hip Weight-bear as tolerated. Dressing change to left hip as needed. Maintain current dressing until it needs changed. Discharge Attestations Time Spent in Discharge Care*: less than 30 min Quality Metrics Clinical Quality Measures [ No reported AMI, CVA or VTE this stay] Coding Level of Care Code Acute [facility] note Diagnoses Subcapital fracture of left hip S72.012A Parkinson disease G20 Lewy body dementia G31.83; F02.80
[2021-06-25] MEDS: sucralfate 1 gm/10 mL Oral Liq UDC PO ×2 (13:25→23:19)
--- NOTE | 2021-06-25 15:37 | PM.PN ---
Subjective Subjective: Patient is seen in her room. She is doing well with minimal to no pain complaints. She was to be discharged to the senior care facility today, but secondary to severe weather conditions, their pharmacy will not be open, and they will not have anyone to monitor her hemoglobin secondary to not having anyone who could draw the blood. Because of this, the patient will be held overnight in the hospital and observed by our medical team. Medications: Medication Review Details: Generic Name Dose Route Start Last Admin Trade Name Tara PRN Reason Stop Dose Admin Aspirin 81 mg 06/21/21 21:00 06/21/21 20:12 Aspirin 81 Mg Ch ew Tablet PO 81 mg BEDTIME NAZARIO Administration Carbidopa/Levodopa 1 each 06/21/21 21:00 06/21/21 20:12 Carbidopa-Levodo pa 25-100mg Tablet PO 1 each BEDTIME NAZARIO Administration Chlorhexidine Gluc raegan 30 ml 06/22/21 10:50 06/22/21 12:41 Chlorhexidine Gl uconate 0.12% Btl 473 Ml MUCOUS MEM 30 ml QID NAZARIO Administration Clonazepam 0.5 mg 06/21/21 21:00 06/21/21 20:12 Clonazepam 0.5 M g Tablet PO 0.5 mg BEDTIME NAZARIO Administration Donepezil HCl 10 mg 06/21/21 21:00 06/21/21 20:12 Donepezil 5 Mg T ablet PO 10 mg BEDTIME NAZARIO Administration Enoxaparin Sodium 40 mg 06/21/21 16:00 06/21/21 16:24 Enoxaparin 40 Mg /0.4 Ml Syringe SUBCUT 40 mg Q24H NAZARIO Administration Mupirocin 1 applic 06/22/21 10:50 06/22/21 12:45 Mupirocin Oint 2 2 Gm NASAL 06/27/21 10:49 1 applic BID NAZARIO Administration Paroxetine HCl 20 mg 06/21/21 21:00 06/21/21 20:13 Paroxetine 20 Mg Tablet PO 20 mg BEDTIME NAZARIO Administration Vitals/I&O/Wt Last Vital Signs Temp 98.5 F 06/25/21 07:36 Pulse 89 06/25/21 07:36 Resp 12 06/25/21 07:36 BP 132/73 06/25/21 07:36 Pulse Ox 97 06/25/21 07:36 06/25/21 06/25/21 06/25/21 06:59 14:59 22:59 Intake Total 240 / 1200 238 / 238 Balance 240 / 1200 238 / 238 Physical Exam Const: COMMON NORMALS: no acute distress, average body habitus and alert GENERAL APPEARANCE: cooperative and comfortable ORIENTATION/CONSCIOUSNESS: Yes awake HENMT: COMMON NORMALS: normocephalic and atraumatic HEAD & SCALP: normocephalic and atraumatic Eye: GENERAL EYE: appearance normal, both eyes and all related structures Chest: COMMONS NORMALS: normal inspection of the chest Resp: COMMON NORMALS: normal respiratory effort EFFORT & INSPECTION: Yes symmetric chest movement Extremity: LEFT LOWER EXTREMITY: Yes hip joint (Thigh is soft and nontender) Left hip: Yes inspection (Dressing is left in place.), Yes palpation (Minimal to no tenderness.) and Yes neurovascular exam (Intact distally.) Neuro: SENSORIUM/ORIENTATION: Yes alert and Yes other (Dementia) Psych: APPEARANCE: Yes grossly normal ATTITUDE: Yes calm ATTENTION/CONCENTRATION: Yes attention grossly intact Skin: COMMON NORMALS: no rashes or lesions noted GENERAL SKIN EXAM: no rashes or lesions noted Urinary Catheter Management: Monroe: Cath Placed During This Visit: yes Reason for Continuing Indwelling Catheter: Other Urinary Catheter Date of Insertion: 06/21/21 Urinary Catheter Time of Insertion: 16:04 Data : 06/25/21 05:08 06/25/21 05:08 Micro: Microbiology 06/21/21 15:53 Urine Culture - Final Urine,Clean Catch Enterobacter aerogenes A&P Assessment and plan (1) Subcapital fracture of left hip: The 75-year-old woman was admitted through the emergency department with a diagnosis of left subcapital hip fracture. She has comorbidities including Parkinson's disease, and she was admitted to the medical service. She underwent a left hip hemiarthroplasty, and since that time, she has been working with physical therapy, and she is doing well. Plans have been made for discharge to senior care. She has had a decrease in her hemoglobin, and they are not able to monitor this tomorrow secondary to limited staff due to the weather. Therefore, the patient will be maintained overnight in the hospital for further monitoring by the hospitalist team. Status: Acute (2) Parkinson disease: Status: Acute (3) Lewy body dementia: Status: Acute Attestations Medical Necessity Statement*: Decreased hemoglobin postoperatively. She will be monitored by the medical team. Coding Level of Care Code Acute Manager Customer for [facility] Fwd Diagnoses Subcapital fracture of left hip S72.012A Parkinson disease G20 Lewy body dementia G31.83; F02.80
--- NOTE | 2021-06-25 15:59 | PM.PN ---
Subjective Subjective: Patient was seen this morning, she is sitting up in a chair, denies any bloody or black stools, no abdominal pain complaints, no fevers, she tells me that she had a good breakfast, does have lower extremity pain Vitals/I&O/Wt Last Vital Signs Temp 98.5 F 06/25/21 07:36 Pulse 89 06/25/21 07:36 Resp 12 06/25/21 07:36 BP 132/73 06/25/21 07:36 Pulse Ox 97 06/25/21 07:36 06/25/21 06/25/21 06/25/21 06:59 14:59 22:59 Intake Total 240 / 1200 238 / 238 Balance 240 / 1200 238 / 238 Physical Exam Const: COMMON NORMALS: no acute distress ORIENTATION/CONSCIOUSNESS: Yes awake, Yes oriented to person and Yes oriented to place; not oriented to time Resp: COMMON NORMALS: normal respiratory effort, No retractions, No use of accessory muscles and clear to auscultation bilaterally AUSCULTATION: clear to auscultation bilaterally Cardio: COMMON NORMALS: regular rate, regular rhythm, S1 normal heart sound present and S2 normal heart sound present RATE: regular rate RHYTHM: regular rhythm HEART SOUNDS: S1 normal heart sound present and S2 normal heart sound present GI: COMMON NORMALS: Normal to inspection, nondistended, normoactive bowel sounds present, Soft to palpation, non-tender and No hepatosplenomegaly present PALPATION: Yes Soft to palpation and Yes No hepatosplenomegaly present Extremity: COMMON NORMALS: no pedal edema Neuro: SENSORIUM/ORIENTATION: Yes oriented to person, Yes oriented to place and No oriented to time Urinary Catheter Management: Monroe: Cath Placed During This Visit: yes Reason for Continuing Indwelling Catheter: Other Urinary Catheter Date of Insertion: 06/21/21 Urinary Catheter Time of Insertion: 16:04 Data : 06/25/21 05:08 06/25/21 05:08 Micro: Microbiology 06/21/21 15:53 Urine Culture - Final Urine,Clean Catch Enterobacter aerogenes A&P Assessment and plan (1) Subcapital fracture of left hip: Status: Acute (2) Closed fracture of left hip: Status: Acute (3) Parkinson disease: Status: Acute (4) Lewy body dementia: Status: Acute (5) GI bleed: Status: Acute Plan Assessment: Left femoral neck fracture: Parkinsonism Lewy body dementia GI bleed, anemia UTI Plan : s/p Left Bipolar Hip Arthroplasty. Orthopedic surgery on board Pain control Continue Sinemet Continue Aricept Hold aspirin 81 mg p.o. daily Hold for DVT prophylaxis Low iron, ferritin, indicating slow GI bleed, as hemoglobin is down to 7.9, check hemoglobin a 6 PM, transfuse if less than 7, Protonix 40 IV twice daily, Carafate, monitor for bloody or black stools, monitor for hemodynamic compromise UTI, continue Bactrim Potassium replacement #CODE STATUS: Full code #Currently awaiting placement to [facility] Medical Necessity Statement*: Patient requires hospitalization for concerns for GI bleed Coding Level of Care Code Acute [employer] for desirae Cooney Diagnoses Subcapital fracture of left hip S72.012A Closed fracture of left hip S72.002A Parkinson disease G20 Lewy body dementia G31.83; F02.80 GI bleed K92.2
[2021-06-25 16:00] VITALS: BP 150/82; PULSE 99; RESP 16; TEMP 37.3; O2SAT 98
[2021-06-25 17:06] LABS: Glucose Point of Care 94 mg/dL (70-110)
[2021-06-25 19:38] LABS: Hematocrit 24.4 % (37.0-47.0); Hemoglobin 8.1 g/dL (11.5-15.3)
[2021-06-25 20:00] VITALS: BP 145/84; PULSE 94; RESP 19; TEMP 37.3; O2SAT 96
[2021-06-25] MEDS: aspirin 81 mg Chew Tablet PO (20:18)
[2021-06-25] MEDS: PARoxetine 20 mg Tablet PO (20:19)
[2021-06-25] MEDS: carbidopa-levodopa 25-100mg Tablet 1 EACH PO (20:19)
[2021-06-25] MEDS: CLONazepam 0.5 mg Tablet PO (20:19)
[2021-06-25] MEDS: donepezil 5 MG Tablet 10 MG PO (20:19)
[2021-06-26] VITALS: BP 128/77; PULSE 92; RESP 17; TEMP 37.1; O2SAT 96
[2021-06-26 02:58] LABS: Basophils % 0.6 %; Eosinophils # 0.2 10^3/uL (0.0-0.8); Eosinophils % 3.7 %; Hemoglobin 7.8 g/dL (11.5-15.3); Lymphocytes # 1.4 10^3/uL (0.8-4.8); Lymphocytes % 22.1 %; Mean Corpuscular HGB Conc 32.5 g/dL (30.0-36.0); Mean Corpuscular Hemoglobin 28.6 pg (28.0-34.0); Mean Corpuscular Volume 87.9 fl (81-99); Mean Platelet Volume 10.1 fL (7.4-10.4); Monocytes # 0.5 10^3/uL (0.2-0.9); Monocytes % 8.1 %; Neutrophils % 65.2 %; Nucleated Red Blood Cells % 0 %; Platelet Count 183 10^3/cmm (130-400); Red Blood Count 2.73 10^6/uL (4.1-5.3); Red Cell Distribution Width 13.4 % (12.1-15.1); White Blood Count 6.3 10^3/uL (4.0-10.0)
[2021-06-26 03:14] LABS: Alanine Aminotransferase < 5 U/L (0-33); Albumin Level 3.1 g/dL (3.5-5.2); Alkaline Phosphatase 83 IU/L (35-105); Anion Gap 11.9 (5-19); Aspartate Amino Transferase 33 U/L (0-32); Blood Urea Nitrogen 22 mg/dL (8-23); Calcium 8.5 mg/dL (8.5-10.5); Carbon Dioxide 26 mmol/L (22-29); Chloride 110 mmol/L (98-107); Globulin 2.4 g/dL (1.3-4.6); Glucose 110 mg/dL (65-115); Magnesium 2.2 mg/dL (1.7-2.3); Osmolality Calculated 302 mOsm/kg (285-295); Potassium 3.9 mmol/L (3.5-5.1); Sodium 144 mmol/L (136-145); Total Bilirubin 0.5 mg/dL (0.15-1.2); Total Protein 5.5 g/dL (6.6-8.7)
[2021-06-26 04:00] VITALS: BP 122/77; PULSE 92; RESP 19; TEMP 37.2; O2SAT 95
[2021-06-26 08:00] VITALS: BP 114/69; PULSE 96; RESP 16; TEMP 36.9; O2SAT 94
[2021-06-26] MEDS: cholecalciferol (vitamin D3) 1,000 unit Tablet 1000 UNIT PO (08:40)
[2021-06-26] MEDS: sulfamethoxazole-trimeth DS 160-800 mg Tablet 1 TAB PO (08:40)
[2021-06-26] MEDS: multivitamin therapeutic Tablet 1 TAB PO (08:40)
[2021-06-26] MEDS: acetaminophen 500 mg Tablet 1000 MG PO (08:40)
[2021-06-26] MEDS: calcium carbonate 500 mg Chew Tablet 1000 MG PO (08:40)
[2021-06-26] MEDS: iron polysaccharide complex 150 mg Capsule PO (08:41)
[2021-06-26] MEDS: mupirocin oint 22 gm 1 APPLIC NASAL (08:41)
[2021-06-26] MEDS: chlorhexidine gluconate 0.12% Btl 473 mL 30 ML MUCOUS MEM ×2 (08:41→14:26)
[2021-06-26] MEDS: sennosides-docusate Tablet 2 TAB PO (08:41)
--- NOTE | 2021-06-26 09:23 | PC.SOCIAL ---
IMM Update pg 2 of IMM updated and reviewed w/ patients daughter. # has been provided to patients son via telephone. Copy in chart updated.
[2021-06-26] MEDS: sucralfate 1 gm/10 mL Oral Liq UDC PO (10:50)
[2021-06-26] MEDS: pantoprazole 40 mg SDV IVP (11:18)
[2021-06-26 12:00] VITALS: BP 149/81; PULSE 96; RESP 16; TEMP 36.6; O2SAT 96
--- NOTE | 2021-06-26 12:56 | PC.NURSE ---
Report called to Denise Truong LPN received report.
[2021-06-26 14:34] VITALS: RESP 17; O2SAT 94
[2021-06-26] MEDS: oxyCODONE 5 mg IR Tab/Cap PO (14:34)
[2021-06-26 14:57] VITALS: BP 149/81; PULSE 96; RESP 16; TEMP 36.6; O2SAT 94
--- NOTE | 2021-06-26 15:00 | PC.NURSE ---
keenan removal was not properly charted out of the system by previous nurse. this nurse charted it out with the information on pt board that gave date and time of removal .
--- NOTE | 2021-06-26 15:14 | P.PN_ITS ---
Subjective Subjective: Patient was seen this morning prior to discharge. She was resting comfortably in her bed. She had no significant complaints. Medications: Medication Review Details: Generic Name Dose Route Start Last Admin Trade Name Tara GRAY Reason Stop Dose Admin Aspirin 81 mg 06/21/21 21:00 06/21/21 20:12 Aspirin 81 Mg Ch ew Tablet PO 81 mg BEDTIME NAZARIO Administration Carbidopa/Levodopa 1 each 06/21/21 21:00 06/21/21 20:12 Carbidopa-Levodo pa 25-100mg Tablet PO 1 each BEDTIME NAZARIO Administration Chlorhexidine Gluc raegan 30 ml 06/22/21 10:50 06/22/21 12:41 Chlorhexidine Gl uconate 0.12% Btl 473 Ml MUCOUS MEM 30 ml QID NAZARIO Administration Clonazepam 0.5 mg 06/21/21 21:00 06/21/21 20:12 Clonazepam 0.5 M g Tablet PO 0.5 mg BEDTIME NAZARIO Administration Donepezil HCl 10 mg 06/21/21 21:00 06/21/21 20:12 Donepezil 5 Mg T ablet PO 10 mg BEDTIME NAZARIO Administration Enoxaparin Sodium 40 mg 06/21/21 16:00 06/21/21 16:24 Enoxaparin 40 Mg /0.4 Ml Syringe SUBCUT 40 mg Q24H NAZARIO Administration Mupirocin 1 applic 06/22/21 10:50 06/22/21 12:45 Mupirocin Oint 2 2 Gm NASAL 06/27/21 10:49 1 applic BID NAZARIO Administration Paroxetine HCl 20 mg 06/21/21 21:00 06/21/21 20:13 Paroxetine 20 Mg Tablet PO 20 mg BEDTIME NAZARIO Administration Vitals/I&O/Wt Last Vital Signs Temp 97.9 F 06/26/21 14:57 Pulse 96 06/26/21 14:57 Resp 16 06/26/21 14:57 BP 149/81 06/26/21 14:57 Pulse Ox 94 06/26/21 14:57 06/26/21 06/26/21 06/26/21 06:59 14:59 22:59 Intake Total 100 / 678 360 / 360 Balance 100 / 678 360 / 360 Weight last 48 hrs Weight 142 lb 3.2 oz Physical Exam Const: COMMON NORMALS: no acute distress, average body habitus and alert G ENERAL APPEARANCE: cooperative and comfortable ORIENTATION/CONSCIOUSNESS: Yes awake HENMT: COMMON NORMALS: normocephalic and atraumatic HEAD & SCALP: normocephalic and atraumatic Eye: GENERAL EYE: appearance normal, both eyes and all related structures Chest: COMMONS NORMALS: normal inspection of the chest Resp: COMMON NORMALS: normal respiratory effort EFFORT & INSPECTION: Yes symmetric chest movement Extremity: LEFT LOWER EXTREMITY: Yes hip joint (Dressing is dry and intact and left in place.) Left hip: Yes inspection (Some ecchymosis.) and Yes neurovascular exam (Intact distally) Neuro: SENSORIUM/ORIENTATION: Yes alert and Yes other (Dementia) Psych: APPEARANCE: Yes grossly normal ATTITUDE: Yes calm ATTENTION/CONCENTRATION: Yes attention grossly intact Skin: COMMON NORMALS: no rashes or lesions noted GENERAL SKIN EXAM: no rashes or lesions noted Urinary Catheter Management: [place]: Cath Placed During This Visit: yes, but has since been removed by the nurse Reason for Continuing Indwelling Catheter: Decision to DC Catheter Urinary Catheter Date of Insertion: 06/21/21 Urinary Catheter Time of Insertion: 16:04 Date Urinary Catheter Removed: 06/24/21 Time Urinary Catheter Discontinued: 06:30 Data : 06/26/21 02:39 06/26/21 02:39 A&P Assessment and plan (1) Subcapital fracture of left hip: The 75-year-old woman was admitted through the emergency department with a diagnosis of left subcapital hip fracture. She has comorbidities including Parkinson's disease, and she was admitted to the medical service. She underwent a left hip hemiarthroplasty, and since that time, she has been working with physical therapy, and she is doing well. Plans have been made for discharge to shelter. She will discharge there today to follow-up with me in 2 to 3 weeks. Status: Acute (2) Parkinson disease: Status: Acute (3) Lewy body dementia: Status: Acute Attestations Medical Necessity Statement*: Patient required ongoing inpatient admission for hip fracture and surrounding treatments. Coding Level of Care Code Acute Residence Hall Director for Bud Cooney Diagnoses Subcapital fracture of left hip S72.012A Parkinson disease G20 Lewy body dementia G31.83; F02.80
== END 2021-06-26 14:58 | disposition skilled nursing facility (03) | DRG 522 ==
LOC: ER 15:00 → MEDSURG 15:06
PROVIDERS: Specialist; Admitting Provider Internal Medicine; Emergency Provider Emergency Medicine; PCP Family Medicine; Visit Provider Family Medicine
PROC: 0SRS0JA Replacement of Left Hip Joint, Femoral Surface with Synthetic Substitute, Uncemented, Open Approach (ICD-10-PCS; CPT 27125; principal; 2021-06-22 08:00)
DX: S72.012A Unspecified intracapsular fracture of left femur, initial encounter for closed fracture (principal); K92.2 Gastrointestinal hemorrhage, unspecified; N39.0 Urinary tract infection, site not specified; W01.0XXA Fall on same level from slipping, tripping and stumbling without subsequent striking against object, initial encounter; G31.83 Neurocognitive disorder with Lewy bodies; F02.80 Dementia in other diseases classified elsewhere, unspecified severity, without behavioral disturbance, psychotic disturbance, mood disturbance, and anxiety; D50.9 Iron deficiency anemia, unspecified; I25.10 Atherosclerotic heart disease of native coronary artery without angina pectoris; Z79.82 Long term (current) use of aspirin; Z85.9 Personal history of malignant neoplasm, unspecified
CPT/HCPCS: 36415; 36416; 51702; 71045; 72170; 73020; 73070; 73502; 73552; 80048; 80053; 81001; 82728; 82962; 83540; 83550; 83735; 85014; 85018; 85025; 87077; 87086; 87186; 87426; 87635; 93005; 96372; 97110; 97162; 97530; 99285; C1776; C9113; J0690; J1650; J2704; J3370; J7030

== ENCOUNTER 2021-06-28 10:36 | Outpatient (CLI) | payer MEDICARE, SELFPAY ==
[2021-06-28 11:01] LABS: Basophils % 0.4 %; Eosinophils # 0.2 10^3/uL (0.0-0.8); Eosinophils % 2.2 %; Hematocrit 25.9 % (37.0-47.0); Hemoglobin 8.2 g/dL (11.5-15.3); Lymphocytes % 13.2 %; Mean Corpuscular HGB Conc 31.7 g/dL (30.0-36.0); Mean Corpuscular Hemoglobin 28.5 pg (28.0-34.0); Mean Corpuscular Volume 89.9 fl (81-99); Monocytes # 0.9 10^3/uL (0.2-0.9); Monocytes % 11.8 %; Neutrophils # 5.13 10^3/uL (1.8-7.7); Neutrophils % 71.6 %; Nucleated Red Blood Cells % 0 %; Platelet Count 290 10^3/cmm (130-400); Red Blood Count 2.88 10^6/uL (4.1-5.3); Red Cell Distribution Width 13.2 % (12.1-15.1); White Blood Count 7.2 10^3/uL (4.0-10.0)
== END 2021-06-28 10:37 | disposition home or self-care (01) ==
LOC: LAB 10:40
PROVIDERS: PCP Family Medicine; Visit Provider Family Medicine
DX: K92.2 Gastrointestinal hemorrhage, unspecified (principal)
CPT/HCPCS: 85025

== ENCOUNTER → 2021-07-07 15:09 | Outpatient (BNVA) | payer MEDICARE, SELFPAY | PROVIDERS: PCP Family Medicine; Visit Provider Specialist | DX: Z96.642 Presence of left artificial hip joint (principal) | CPT/HCPCS: 73502 ==

== ENCOUNTER 2021-07-31 08:35 | Day surgery (SDC) | payer MEDICARE, SELFPAY ==
[2021-07-30 12:56] VITALS: BMI 21.4
[2021-07-31 08:49] VITALS: BP 99/62; PULSE 93; RESP 16; TEMP 36.7; O2SAT 97
--- NOTE | 2021-07-31 09:24 | P.HP_ITS ---
Same Day Surgery H&P Indication for Procedure/HPI DATE OF PROCEDURE: July 31, 2021 CHIEF COMPLAINT/INDICATIONFOR SURGICAL PROCEDURE: egd/colon possible hemorrhoidectomy PREOP DIAGNOSIS: diagnostic PLANNED PROCEDURE: Operation Date: 07/31/21 10:05 Proposed Procedures p Colonoscopy 66085/08859/78379/k92.2/k64.0(Not Applicable) - MD juliet Moore EGD(Not Applicable) - MD juliet Moore Hemorroidectomy(Not Applicable) - Jamin Aldana MD Medications/Allergies* Home Medications Medication Instructions Recorded Confirmed Type donepezil 10 mg tablet 10 mg PO BEDTIME 02/05/20 07/31/21 History paroxetine HCl 20 mg tablet 20 mg PO BEDTIME 02/05/20 07/31/21 History carbidopa 25 mg-levodopa 100 mg 1 tab PO BEDTIME 06/21/21 07/31/21 History disintegrating tablet cholecalciferol (vitamin D3) 25 25 mcg PO DAILY 07/30/21 07/31/21 History mcg (1,000 unit) chewable tablet (Vitamin D3) multivitamin with iron 1 tab PO DAILY 07/30/21 07/31/21 History pantoprazole 40 mg tablet,delayed 40 mg PO DAILY 07/30/21 07/31/21 History release (Protonix) polyethylene glycol 3350 17 gram 17 g PO DAILY 07/30/21 07/30/21 History oral powder packet (Miralax) polysaccharide iron complex 150 mg 150 mg PO DAILY 07/30/21 07/31/21 History iron capsule (Ferrex) Allergies/Adverse Reactions Allergy/AdvReac Type Severity Reaction Status Date / Time No Known Allergies Allergy Verified 07/31/21 09:00 Pertinent History/Comorbid Conditions* Medical History (Updated 07/12/21 @ 09:37 by Jamin Aldana MD) Constipation Lewy body Parkinson disease Surgical History (Updated 07/11/21 @ 14:36 by Floridalma Cardoso MD) History of cholecystectomy History of hip replacement 06/22/21 Family History (Updated 02/05/20 @ 11:32 by Stacie Urbano LPN) Diabetes CAD (coronary artery disease) Dementia Cancer Parkinson disease Social History Smoking and tobacco status: never smoked Pertinent Exam Findings alert, oriented x 3 and regular rate & rhythm Recommendations Surgery/Procedure today Coding Level of Care Code Acute Telephone Appointment Clerk for Chg F[facility]
[2021-07-31] MEDS: sodium chloride 0.9% 1,000 ML 30 ML IV (09:33)
--- NOTE | 2021-07-31 09:33 | P.ANESASSM_ITS ---
Pre-Anesthetic Assessment Height/Weight: Height 1.65 m Weight 58.513 kg Temp Pulse Resp BP Pulse Ox 98.1 F 93 16 99/62 97 07/31/21 08:49 07/31/21 08:49 07/31/21 08:49 07/31/21 08:49 07/31/21 08:49 Preop Diagnosis: diagnostic Operation Date: 07/31/21 10:05 Proposed Procedures p Colonoscopy [id number]/26648/08330/k92.2/k64.0(Not Applicable) - Jamin Aldana MD s EGD(Not Applicable) - Jamin Aldana MD s Hemorroidectomy(Not Applicable) - Jamin Aldana MD Familial anesthetic complications: None Was Beta Carolyn taken within 24 hours: N/A Was Clonidine taken within 24 hours: N/A Last intake: Intake Last Liquid Date 07/30/21 Last Liquid Time 18:00 Last Solid Date 07/30/21 Last Solid Time 12:00 Social No alcohol and No tobacco Exam alert, oriented x 3, clear to auscultation bilaterally and regular rate & rhythm Airway Submandibular: within normal limits Cervical ROM: within normal limits Mallampati: Class II Dentition: partials CV/HEM Anemia GI Gastroesophageal Reflux Disease Neuropsych Dementia (Parkinson's) Anesthetic Plan ASA status: 3 Anesthesia: Choice Medications/Allergies Home Medications Medication Instructions Recorded Confirmed Last Taken Type donepezil 10 mg tablet 10 mg PO BEDTIME 02/05/20 07/31/21 07/30/21 20:00 History paroxetine HCl 20 mg tablet 20 mg PO BEDTIME 02/05/20 07/31/21 07/30/21 20:00 History Depends Pull Ups #1 ea 08/26/20 07/08/21 Unknown Rx Hospital bed #1 ea 08/26/20 07/08/21 Unknown Rx Arsen Lift #1 ea 08/26/20 07/08/21 Unknown Rx carbidopa 25 mg-levodopa 100 mg 1 tab PO BEDTIME 06/21/21 07/31/21 07/30/21 18:00 History disintegrating tablet lactulose 10 gram/15 mL oral 10 g (15 mL) PO BID 30 Days #900 ml 07/08/21 07/31/21 07/30/21 Rx solution cholecalciferol (vitamin D3) 25 25 mcg PO DAILY 07/30/21 07/31/2122 History mcg (1,000 unit) chewable tablet (Vitamin D3) multivitamin with iron 1 tab PO DAILY 07/30/21 07/31/21 07/30/21 History pantoprazole 40 mg tablet,delayed 40 mg PO DAILY 07/30/21 07/31/21 07/30/21 History release (Protonix) polyethylene glycol 3350 17 gram 17 g PO DAILY 07/30/21 07/30/21 Unknown History oral powder packet (Miralax) polysaccharide iron complex 150 mg 150 mg PO DAILY 07/30/21 07/31/21 07/30/21 History iron capsule (Ferrex) Allergies Allergy/AdvReac Type Severity Reaction Status Date / Time No Known Allergies Allergy Verified 07/31/21 09:00 [facility] Anesthesia Medical History Constipation Lewy body Parkinson disease Surgical History History of cholecystectomy History of hip replacement 06/22/21 Family History Other CAD (coronary artery disease) Cancer Dementia Diabetes Parkinson disease Social History Smoking and tobacco status: never smoked Data Anesthesia Cardiac Studies: No Data to Display
[2021-07-31 10:44] VITALS: BP 110/65; PULSE 76; RESP 18; TEMP 36.4; O2SAT 98
[2021-07-31 10:50] VITALS: BP 125/81; PULSE 76; RESP 18
[2021-07-31 10:55] VITALS: BP 133/61; PULSE 66; RESP 18; O2SAT 98
[2021-07-31 11:00] VITALS: BP 135/70; PULSE 72; RESP 18; TEMP 36.3; O2SAT 97
--- NOTE | 2021-07-31 11:32 | PM.OP ---
Operative Report Date of procedure: July 31, 2021 Pre-op diagnosis: 1. Anemia 2. Symptomatic hemorrhoids Post-op diagnosis: 1. Nonerosive gastritis in the antrum and body of the stomach, diaphragmatic hernia 2. Sigmoid diverticulosis 3. Grade 3 hemorrhoids on the right lateral and left lateral location Procedure done: 1. Esophagogastroduodenoscopy without biopsy 2. Colonoscopy past splenic flexure without biopsy 3. Hemorrhoidectomy x2 Specimens removed/disposition: Hemorrhoidal tissue Pathology: none sent Surgeon: Jamin Aldana Anesthesia: MAC Condition: stable Disposition: PACU Procedure: The patient was taken to the operating room and placed in left lateral position under MAC. A bite block was placed and a gastroscope was introduced and advanced up to the third portion of the duodenum and slowly withdrawn. Esophagus Esophagus: Normal GE junction: Z-line at 40 cm, there was a diaphragmatic hernia noted on retroflexion Stomach Fundus: Normal Body: Normal Antrum: Nonerosive gastritis Pylorus: Nonerosive gastritis Duodenum First portion of duodenum: Normal Second portion of duodenum: Normal Third portion of duodenum: Normal can you get Audra to see the patient A colonoscope was introduced and advanced up to the cecum and slowly withdrawn. The colon prep was fair. Cecum: Normal Ascending colon: Normal Transverse colon: Normal Descending colon: Normal Sigmoid colon: Moderate diverticulosis Rectum: Grade 3 hemorrhoids YANI: Grade 3 hemorrhoids The perineum was prepped and draped in a sterile manner. A perianal block was performed using 10 cc of Exparel mixed with 10 cc of 0.5% Marcaine mixed with 10 cc of saline. Anoscope was introduced to examine the rectum and anal canal and 2 hemorrhoid pedicles were identified. The pedicle on the right side was grasped with Allis clamps and a skin incision was made from the perianal skin to the anal verge and the plane identified superficial to the internal sphincter muscle and the external and internal hemorrhoids were excised with an energy device. The pedicle on the left side was grasped with Allis clamps and a skin incision was made from the perianal skin to the anal verge and the plane identified superficial to the internal sphincter muscle and the external and internal hemorrhoids were excised with an energy device. Hemostasis ensured and a Adaptic gauze soaked in Vaseline and placed within the anal canal. Dressings were applied and transferred to recovery room in stable condition.
[2021-07-31 12:58] VITALS: BP 135/70; PULSE 70; RESP 17; TEMP 36.8; O2SAT 99
--- NOTE | 2021-07-31 14:40 | ANE.PACU2 ---
Inpatient post-anesthesia follow up: Airway intact: Yes Vital signs: Temperature 98.3 F Pulse Rate 70 Respiratory Rate 17 Blood Pressure 135/70 Pulse Oximetry 99 Oxygen Delivery Me thod Room Air Oxygen Flow Rate 2 Fraction of Inspir ed Oxygen Hydration adequate: Yes Nausea and vomiting: No Pain level: 2 Mental status: Baseline
== END 2021-07-31 12:55 | disposition home or self-care (01) ==
PROVIDERS: PCP Family Medicine; Visit Provider Surgery
PROC: 0DJD8ZZ Inspection of Lower Intestinal Tract, Via Natural or Artificial Opening Endoscopic (ICD-10-PCS; CPT 45378; principal; 2021-07-31 09:55)
PROC: 0DJ08ZZ Inspection of Upper Intestinal Tract, Via Natural or Artificial Opening Endoscopic (ICD-10-PCS; CPT 43235; 2021-07-31 09:55)
PROC: (CPT 43235; 2021-07-31 09:55)
DX: D64.9 Anemia, unspecified (principal); K64.2 Third degree hemorrhoids; K29.70 Gastritis, unspecified, without bleeding; K57.30 Diverticulosis of large intestine without perforation or abscess without bleeding; K21.9 Gastro-esophageal reflux disease without esophagitis; F03.90 Unspecified dementia, unspecified severity, without behavioral disturbance, psychotic disturbance, mood disturbance, and anxiety
CPT/HCPCS: 43235; 45378; 46250; 88304; C9290; J0690; J2704; J3010; J3490; J7030

== ENCOUNTER → 2021-08-20 15:17 | Outpatient (BNVA) | payer MEDICARE, SELFPAY | PROVIDERS: PCP Family Medicine; Visit Provider Specialist | DX: S72.012S Unspecified intracapsular fracture of left femur, sequela (principal); X58.XXXS Exposure to other specified factors, sequela; Z96.649 Presence of unspecified artificial hip joint | CPT/HCPCS: 73502 ==

== ENCOUNTER → 2021-08-26 10:48 | Outpatient (BNVA) | payer MEDICARE, SELFPAY | PROVIDERS: PCP Family Medicine; Visit Provider Surgery | DX: Z98.890 Other specified postprocedural states (principal) | CPT/HCPCS: 99213 ==

== ENCOUNTER → 2021-11-18 10:31 | Outpatient (BNVA) | payer MEDICARE, SELFPAY | PROVIDERS: PCP Family Medicine; Visit Provider Specialist | DX: G20 Parkinson's disease (principal); F02.80 Dementia in other diseases classified elsewhere, unspecified severity, without behavioral disturbance, psychotic disturbance, mood disturbance, and anxiety; I95.9 Hypotension, unspecified | CPT/HCPCS: 99213 ==

== ENCOUNTER 2022-07-21 17:56 | Emergency (ER) | payer MEDICARE, MEDICAID, SELFPAY ==
[2022-07-21 18:01] VITALS: BP 110/61; PULSE 83; RESP 18; TEMP 37.3; O2SAT 95
--- NOTE | 2022-07-21 18:16 | XRR_ITS ---
PROCEDURE INFORMATION: Exam: XR Chest Exam date and time: 07/21/2022 6:21 PM Age: 76 years old Clinical indication: Fever TECHNIQUE: Imaging protocol: Radiologic exam of the chest. Views: 1 view. COMPARISON: CR XR chest 1V [id number] 06/21/2021 3:08 PM FINDINGS: Lungs: Minimal left basilar atelectasis. No focal infiltrate or consolidation. Pleural spaces: Unremarkable. No pleural effusion. No pneumothorax. Heart/Mediastinum: Cardiac silhouette is upper limits of normal. Vasculature: Mild calcification of the thoracic aorta. Bones/joints: No acute findings. XR/XR chest 1V portable [id number] IMPRESSION: Minimal left basilar atelectasis. No acute findings, otherwise.
--- NOTE | 2022-07-21 18:17 | ECG_ITS ---
[facility] Test Date: 2022-07-21 Pat Name: Maine Jimenez Department: Room: Gender: Female Health And Wellness Manager: : 1945 Requested By: Elizabeth Gomes Order Number: [id number] Panfilo MD: Oksana Dimas M.D. Measurements Intervals [place] Rate: 73 P: 69 FL: 149 QRS: 68 QRSD: 95 T: 51 QT: 393 QTc: 433 Interpretive Statements SINUS RHYTHM Compared to ECG 06/21/2021 15:22:08 ST (T wave) deviation no longer present Electronically Signed On 07-21-2022 23:12:37 CDT by Oksana Dimas M.D. [id number]
--- NOTE | 2022-07-21 18:26 | CTR_ITS ---
PROCEDURE INFORMATION: Exam: CT Head Without Contrast Exam date and time: 07/21/2022 7:12 PM Age: 76 years old Clinical indication: Altered mental status/memory loss; Additional info: AMS TECHNIQUE: Imaging protocol: Computed tomography of the head without contrast. Radiation optimization: All CT scans at this facility use at least one of these dose optimization techniques: automated exposure control; mA and/or kV adjustment per patient size (includes targeted exams where dose is matched to clinical indication); or iterative reconstruction. REPORTING DATA: Count of CT and Cardiac NM exams in prior 12 months: This patient has received 0 known CTs and 0 known cardiac nuclear medicine studies in the 12 months prior to the current study. COMPARISON: MR head wo con* [id number] 01/19/2018 4:22 PM RADIATION DOSE METRICS: Total DLP (mGy-cm): 1079.08 FINDINGS: Brain: Atrophic or involutional change for age. Mild periventricular leukomalacia or chronic small-vessel disease change bilaterally. No intracranial hemorrhage or hematoma is seen. No mass effect or shift of midline structures. No findings to indicate large vessel ischemic change or infarct. No acute change from prior MRI brain. Cerebral ventricles: Component of ventricular prominence with atrophy. Paranasal sinuses: Mild mucosal thickening ethmoid sinuses. Mastoid air cells: Visualized mastoid air cells are well aerated. Bones/joints: Unremarkable. No acute fracture. Soft tissues: Unremarkable. CT/CT head wo con* [id number] IMPRESSION: 1. Atrophic or involutional change for age, along with mild periventricular chronic small-vessel disease change. 2. No acute intracranial abnormality.
--- NOTE | 2022-07-21 18:28 | ED_ITS ---
HPI - Fever General: Chief Complaint: Fever Stated Complaint: FEVER/ POSSIBLE SEPSIS Time Seen by Provider: 07/21/22 17:57 Source: EMS Mode of arrival: EMS Limitations: altered mental status History of Present Illness: 76-year-old female who has a history of dementia [facility] fever and hypotension per EMS she had a temp of 102 with blood pressure in the 80s her blood pressure here is currently normal and she has a temp of 99.1 she is had no vomiting per [facility] she had sl ight confusion compared to her baseline but she does have confusion at baseline due to her dementia here she is able to answer some questions but she is quite confused she is responsive. Review of Systems General: Reports: ROS unobtainable due to mental status Const: Reports: fever(s) PFSH ED PFSH: Medical History Constipation Lewy body Parkinson disease Surgical History H/O esophagogastroduodenoscopy (07/31/21) H/O hemorrhoidectomy (07/31/21) History of cholecystectomy History of hip replacement 06/22/21 Status post colonoscopy (07/31/21) Family History Other CAD (coronary artery disease) Cancer Dementia Diabetes Parkinson disease Social History Smoking and tobacco status: never smoked Physical Exam Const: COMMON NORMALS: alert; negative for patient oriented x3 ORIENTATION/CONSCIOUSNESS: Yes oriented to person; not oriented to place and not oriented to time HENMT: COMMON NORMALS: normocephalic and atraumatic HEAD & SCALP: normocephalic and atraumatic Eye: COMMON NORMALS: Equal, round and reactive pupils present and EOMs intact bilaterally PUPIL: Yes Equal, round and reactive pupils present Neck/C-Spine: COMMON NORMALS: full ROM and supple Chest: COMMONS NORMALS: normal inspection of the chest and normal palpation of entire chest wall Resp: COMMON NORMALS: normal respiratory effort, No retractions, No use of accessory muscles and clear to auscultation bilaterally AUSCULTATION: clear to auscultation bilaterally Cardio: COMMON NORMALS: regular rate, regular rhythm and No murmurs present (Cardio) RATE: regular rate RHYTHM: regular rhythm GI: COMMON NORMALS: Normal to inspection, nondistended, normoactive bowel sounds present, Soft to palpation, non-tender and no masses PALPATION: Yes Soft to palpation Extremity: COMMON NORMALS: normal to inspection and full ROM Neuro: COMMON NORMALS: negative for patient oriented x3 SENSORIUM/ORIENTATION: Yes alert, Yes oriented to person, No oriented to place and No oriented to time Psych: COMMON NORMALS: Normal thought process present and cooperative; negative for mental status grossly normal THOUGHT PROCESS: Normal thought process present Skin: COMMON NORMALS: no rashes or lesions noted and no wounds GENERAL SKIN EXAM: no rashes or lesions noted Course Vital Signs: Vital signs: Vital Signs Temperature 99.1 F 07/21/22 18:01 Pulse Rate 83 07/21/22 18:01 Respiratory Rate 18 07/21/22 18:01 Blood Pressure 110/61 07/21/22 18:01 Pulse Oximetry 95 07/21/22 18:01 Oxygen Delivery Me thod 07/21/22 18:01 MDM - Fever Medical Decision Making Patient presents here with fever she does have a UTI likely causing her fever she has had no signs of sepsis here blood pressures been normal blood work is all normal as well did give her dose of Rocephin we will prescribe her Keflex for home. She is to be [facility] return if worsening. Lab Data 07/21/22 17:45 07/21/22 17:45 Radiology Impressions Chest X-Ray 07/21/22 18:16 IMPRESSION: Minimal left basilar atelectasis. No acute findings, otherwise. Head CT 07/21/22 18:26 IMPRESSION: 1. Atrophic or involutional change for age, along with mild periventricular chronic small-vessel disease change. 2. No acute intracranial abnormality. Laboratory Results WBC 6.4 10^3/uL (4.0-10.0) 07/21/22 17:45 RBC 4.30 10^6/uL (4.1-5.3) 07/21/22 17:45 Hgb 12.4 g/dL (11.5-15.3) 07/21/22 17:45 Hct 38.2 % (37.0-47.0) 07/21/22 17:45 MCV 88.8 fl (81-99) 07/21/22 17:45 MCH 28.8 pg (28.0-34.0) 07/21/22 17:45 MCHC 32.5 g/dL (30.0-36.0) 07/21/22 17:45 RDW 13.8 % (12.1-15.1) 07/21/22 17:45 Plt Count 198 10^3/cmm (130-400) 07/21/22 17:45 MPV 10.1 fL (7.4-10.4) 07/21/22 17:45 Neut % (Auto) 66.2 % 07/21/22 17:45 Lymph % (Auto) 18.1 % 07/21/22 17:45 [place] % (Auto) 14.9 % 07/21/22 17:45 Eos % (Auto) 0.2 % 07/21/22 17:45 Baso % (Auto) 0.3 % 07/21/22 17:45 Neut # (Auto) 4.21 10^3/uL (1.8-7.7) 07/21/22 17:45 Lymph # (Auto) 1.2 10^3/uL (0.8-4.8) 07/21/22 17:45 [place] # (Auto) 1.0 10^3/uL (0.2-0.9) H 07/21/22 17:45 Eos # (Auto) 0.0 10^3/uL (0.0-0.8) 07/21/22 17:45 Baso # (Auto) 0.0 10^3/uL (0.0-0.1) 07/21/22 17:45 Nucleated RBC % (auto) 0 % 07/21/22 17:45 Nucleated RBCs # 0.0 /100WBC 07/21/22 17:45 Specimen Type Arterial 07/21/22 18:47 Sample Site Radial, left 07/21/22 18:47 ABG pH 7.43 (7.35-7.45) 07/21/22 18:47 ABG pCO2 43.6 mmHg (35-45) 07/21/22 18:47 ABG pO2 81.8 mmHg (80.0-100.0) 07/21/22 18:47 ABG HCO3 28.7 mmol/L (22-26) H 07/21/22 18:47 ABG Base Excess 3.7 mmol/L (-2.0-2.0) H 07/21/22 18:47 Pilo Test Pos 07/21/22 18:47 Hematocrit 37.1 % (37-47) 07/21/22 18:47 O2 Delivery Device Room air 07/21/22 18:47 FiO2 21.0 % 07/21/22 18:47 Paper Cup Machine Operator ID [email or web address] 07/21/22 18:47 Sodium 139 mmol/L (136-145) 07/21/22 17:45 Potassium 4.3 mmol/L (3.5-5.1) 07/21/22 17:45 Chloride 101 mmol/L (98-107) 07/21/22 17:45 Carbon Dioxide 26 mmol/L (22-29) 07/21/22 17:45 Anion Gap 16.3 (5-19) 07/21/22 17:45 BUN 19 mg/dL (8-23) 07/21/22 17:45 Creatinine 1.0 mg/dL (0.5-0.9) H 07/21/22 17:45 GFR Calculation Not Reportable 07/21/22 17:45 Glucose 126 mg/dL (65-115) H 07/21/22 17:45 Calculated Osmolality 292 mOsm/kg (285-295) 07/21/22 17:45 Lactate 1.4 mmol/L (0.5-2.2) 07/21/22 18:55 Calcium 8.0 mg/dL (8.5-10.5) L 07/21/22 17:45 Magnesium 2.1 mg/dL (1.7-2.3) 07/21/22 17:45 Total Bilirubin 0.5 mg/dL (0.15-1.2) 07/21/22 17:45 AST 22 U/L (0-32) 07/21/22 17:45 ALT 6 U/L (0-33) 07/21/22 17:45 Alkaline Phosphatase 83 U/L (35-105) 07/21/22 17:45 Troponin T Baseline 21 ng/L (0-10) H 07/21/22 17:45 Troponin T 120 Minute 20.33 ng/L (0-10) H 07/21/22 19:30 Delta Troponin T -0.67 ABS# (0-10) L 07/21/22 19:30 C-Reactive Protein 25.2 mg/L (0.0-4.9) H 07/21/22 17:45 Total Protein 6.1 g/dL (6.6-8.7) L 07/21/22 17:45 Albumin 3.7 g/dL (3.5-5.2) 07/21/22 17:45 Globulin 2.4 g/dL (1.3-4.6) 07/21/22 17:45 Lipase 64 U/L (13-60) H 07/21/22 17:45 Urine Color Yellow (Yellow) 07/21/22 Unknown Urine Appearance Cloudy (CLEAR) A 07/21/22 Unknown Urine pH 8 (5-7) H 07/21/22 Unknown Ur Specific [place] 1.010 (1.005-1.030) 07/21/22 Unknown Urine Protein Neg (Negative) 07/21/22 Unknown Urine Glucose (UA) Norm (Normal) 07/21/22 Unknown Urine Ketones 1+ (Negative) H 07/21/22 Unknown Urine Blood Trace (Negative) H 07/21/22 Unknown Urine Nitrate Negative (Negative) 07/21/22 Unknown Urine Bilirubin Neg (Negative) 07/21/22 Unknown Prot Sulfosalicylic Acd Positive (Negative) 07/21/22 Unknown Urine Urobilinogen 1 mg/dL (Negative) H 07/21/22 Unknown Ur Leukocyte Esterase 1+ (Negative) H 07/21/22 Unknown Urine RBC 0-4 /hpf (0-2) H 07/21/22 Unknown Urine WBC 15-25 /hpf (0-5) H 07/21/22 Unknown Ur Squamous Epith Cells 0-4 /hpf (0-5) H 07/21/22 Unknown Triple Phos Crystals 0-4 /hpf H 07/21/22 Unknown Amorphous Sediment Not Reportable 07/21/22 Unknown Urine Bacteria 3+ /hpf (NONE) H 07/21/22 Unknown EKG Data EKG 1: I personally reviewed and interpreted this EKG as follows: EKG interpretation date: 07/21/22 EKG interpretation time: 18:54 Interpretation: nsr hr [address] or t wave abnormlities qrs 95 qtc 418 Discharge Plan Discharge Patient Disposition: Home Clinical Impression: Acute cystitis Condition: Stable Prescriptions: New cephalexin 500 mg capsule 500 mg PO TID 7 Days Qty: 21 0RF No Action (DME) Arsen Lift See Rx Instructions .Route .MEDSUPPLY Qty: 1 0RF Rx Instructions: As directed (DME) Depends Pull Ups See Rx Instructions .Route .MEDSUPPLY Qty: 1 0RF Rx Instructions: As directed (DME) Hospital bed See Rx Instructions .Route .MEDSUPPLY Qty: 1 0RF Rx Instructions: As directed donepezil 10 mg tablet 10 mg PO BEDTIME paroxetine HCl 20 mg tablet 20 mg PO BEDTIME lactulose 10 gram/15 mL solution 10 g PO BID 30 Days Qty: 900 2RF Miralax 17 gram Powder In Packet 17 g PO DAILY polysaccharide iron complex [Ferrex 150] 150 mg iron Capsule 150 mg PO DAILY pantoprazole [Protonix] 40 mg Tablet,Delayed Release (Dr/Ec) 40 mg PO DAILY multivitamin with iron Tablet 1 tab PO DAILY cholecalciferol (vitamin D3) [Vitamin D3] 25 mcg (1,000 unit) Tablet,Chewable 25 mcg PO DAILY hydrocodone-acetaminophen 5-325 mg tablet 1 tab PO Q6H PRN (Reason: pain) Qty: 20 0RF lactulose 10 gram/15 mL solution 15 ml PO BID Qty: 237 2RF carbidopa-levodopa 25-100 mg tablet,disintegrating 1 tab PO BEDTIME Discharge Orders: Discharge ED (Routine); Ordered 07/21/22 Ordered By: Elizabeth Gomes Referrals: Emile Castillo MD [Primary Care Provider] - 1-3 days Discharge Diet: Advance as tolerated Discharge Activity: Resume usual activity Patient Instructions: Urinary Tract Infection in Women (ED) Coding Level of Care Code ED 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
[2022-07-21] MEDS: sodium chloride 0.9% 1,000 ML 999 ML IV (18:29)
[2022-07-21 18:36] LABS: Basophils % 0.3 %; Eosinophils % 0.2 %; Hematocrit 38.2 % (37.0-47.0); Hemoglobin 12.4 g/dL (11.5-15.3); Lymphocytes # 1.2 10^3/uL (0.8-4.8); Lymphocytes % 18.1 %; Mean Corpuscular HGB Conc 32.5 g/dL (30.0-36.0); Mean Corpuscular Hemoglobin 28.8 pg (28.0-34.0); Mean Corpuscular Volume 88.8 fl (81-99); Mean Platelet Volume 10.1 fL (7.4-10.4); Monocytes % 14.9 %; Neutrophils # 4.21 10^3/uL (1.8-7.7); Neutrophils % 66.2 %; Nucleated Red Blood Cells % 0 %; Platelet Count 198 10^3/cmm (130-400); Red Cell Distribution Width 13.8 % (12.1-15.1); White Blood Count 6.4 10^3/uL (4.0-10.0)
[2022-07-21 18:54] LABS: Troponin(5th) Baseline 21 ng/L (0-10)
--- NOTE | 2022-07-21 18:55 | PC.NURSE ---
entered room for straight cath to obtain urine sample. pt noted to be incontinent of liquid stool. michael care provided. pt straight cathed utilizing sterile technique.
[2022-07-21 18:56] LABS: ABG PCO2 43.6 mmHg (35-45); ABG PH Result 7.43 (7.35-7.45); Arterial Blood Gas Hematocrit 37.1 % (37-47); Base Excess ABG 3.7 mmol/L (-2.0-2.0); Blood Gas Allen Test Pos; Blood Gas Operator Identificat glc; Blood Gas Sample Site Radial, left; Blood Gas Sample Type Arterial; HCO3 ABG 28.7 mmol/L (22-26); Oxygen Device ROOM AIR; PO2 ABG 81.8 mmHg (80.0-100.0)
[2022-07-21 18:57] LABS: Alanine Aminotransferase 6 U/L (0-33); Albumin Level 3.7 g/dL (3.5-5.2); Alkaline Phosphatase 83 U/L (35-105); Anion Gap 16.3 (5-19); Aspartate Amino Transferase 22 U/L (0-32); Blood Urea Nitrogen 19 mg/dL (8-23); C Reactive Protein 25.2 mg/L (0.0-4.9); Carbon Dioxide 26 mmol/L (22-29); Chloride 101 mmol/L (98-107); Creatinine Clr Calc Pharmacy 45.6779; Globulin 2.4 g/dL (1.3-4.6); Glucose 126 mg/dL (65-115); Lipase 64 U/L (13-60); Magnesium 2.1 mg/dL (1.7-2.3); Osmolality Calculated 292 mOsm/kg (285-295); Potassium 4.3 mmol/L (3.5-5.1); Sodium 139 mmol/L (136-145); Total Bilirubin 0.5 mg/dL (0.15-1.2); Total Protein 6.1 g/dL (6.6-8.7)
[2022-07-21] MEDS: acetaminophen 325 mg Tablet 650 MG PO (19:28)
[2022-07-21 19:32] LABS: Bilirubin Urine Neg (Negative); Blood Urine Trace (Negative); Glucose Urine UA Norm (Normal); Ketones Urine 1+ (Negative); Leukocyte Esterase Urine 1+ (Negative); Nitrate Urine Negative (Negative); Protein Urine Neg (Negative); Sulfosalicylic Acid Urine Positive (Negative); Urine Appearance Cloudy (CLEAR); Urine Color Yellow (Yellow); Urobilinogen Urine 1 mg/dL (Negative); pH Urine 8 (5-7)
[2022-07-21 19:33] LABS: Add Urine Culture? Yes; Add Urine Microscopic? YES; Bacteria Urine 3+ /hpf; RBC Urine 0-4 /hpf (0-2); Squamous Epithelial Cell Urine 0-4 /hpf (0-5); Triple Phosphate Crystal Urine 0-4 /hpf; WBC Urine 15-25 /hpf (0-5)
[2022-07-21] MEDS: cefTRIAXone 1,000 MG in sodium chloride 0.9% (plus) 50 ML 100 MG IV (20:08)
[2022-07-21 20:21] LABS: Troponin 5 2HR 20.33 ng/L (0-10)
[2022-07-21 20:22] LABS: Lactate (Lactic Acid level) 1.4 mmol/L (0.5-2.2)
[2022-07-21 20:22] LABS: Troponin 5 2HR Delta -0.67 ABS# (0-10)
[2022-07-21 21:37] VITALS: BP 106/59; PULSE 78; RESP 18; O2SAT 93
== END 2022-07-21 21:39 | disposition home or self-care (01) ==
PROVIDERS: Emergency Provider Emergency Medicine; PCP Family Medicine
DX: N30.00 Acute cystitis without hematuria (principal); G20 Parkinson's disease
CPT/HCPCS: 36415; 36600; 70450; 71045; 80053; 81001; 82803; 83605; 83690; 83735; 84484; 85025; 86140; 87040; 87077; 87086; 87186; 93005; 96365; 99285; J0696; J7030

== ENCOUNTER → 2022-11-18 09:21 | Outpatient (BNVA) | payer MEDICARE, SELFPAY | PROVIDERS: PCP Family Medicine; Visit Provider Specialist | DX: G20 Parkinson's disease (principal) | CPT/HCPCS: 99213 ==

== ENCOUNTER → 2023-11-17 11:30 | Outpatient (BNVA) | payer MEDICARE, MEDICAID, SELFPAY | PROVIDERS: PCP Family Medicine; Visit Provider Specialist | DX: G20.C Parkinsonism, unspecified (principal) | CPT/HCPCS: 99212; 99213 ==